=== PATIENT | female | born 1945 | race Caucasian/White ===

== ENCOUNTER 2016-11-09 18:00 | Inpatient (IN) | payer MEDICARE, OTHER ==
--- NOTE | ~2016-11-09 | HP ---
History And Physical [id number] [place]. [address] NAME: ANDREW GARCIA : 45 STATUS : ADM IN [facility]#: [id number] AGE: 71 ADM/REG DATE : 11/09/16 MR#: [id number] REPORT SERV DATE: 11/10/16 DICTATED BY: RICHELLE ESPINOZA DATE: 11/10/16 REPORT STATUS : Draft TRANSCRIBED BY: MODJuliana DATE: 11/10/16 DATE OF ADMISSION: 11/09/2016 CHIEF COMPLAINT: Worsening peripheral edema. HISTORY OF PRESENT ILLNESS: 71-year-old woman, known to me from prior care, followed by Dr. Jones, has history of mitral valve replacement and pulmonary hypertension with 06/29 echo estimating peak PA pressure 62 mmHg, minimally impaired LV systolic function with 06/29 echo estimating LVEF 45%, 08/27 echo and cardiac evaluation yielding mitral valve area in the range of 1.0 cm2 and significant aortic regurgitation with 09/27 placement of Laureano bioprosthesis in the mitral position and Mitroflow bioprosthetic aortic valve (Dr. Nava). 06/29 echo estimated peak AV gradient of only 17 mmHg with nominal mitral valve function. The patient's cardiovascular history is further remarkable for untreated sleep apnea, hypertension, diabetes, coronary artery disease with 09/27 CABG consisting of SVG to posterior descending artery and peripheral vascular disease. The patient reports flu-like symptoms over the last week and worsening lower extremity edema. She telephoned her primary doctor who urged her to go to the [facility] where she was evaluated and assessed to have heart failure. BNP was markedly elevated. Increase in lower extremity edema was observed. I was contacted and accepted the patient in transfer to [facility]. PAST MEDICAL HISTORY: 1. CAD-status post CABG. 2. Pulmonary hypertension-marked after mitral valve replacement due to mitral stenosis. 3. Status post MVR with Laureano bioprosthesis. 4. Status post AVR with Mitroflow bioprosthesis. 5. DM2. 6. Hypertension. 7. CHRISTIANE-not treated with CPAP. 8. Hypercholesteremia-treated. 9. Carotid disease-noncritical. 10.Peripheral arterial disease-reported right lower extremity stent by vascular surgeon remotely. CURRENT MEDICATIONS: Clonidine 0.1 mg/hr patch, Lantus 35 units q.p.m., Zetia 10 mg daily, omeprazole 40 mg daily, paroxetine 40 mg daily, Micardis 80 mg daily, Plavix 75 mg daily, nitroglycerin patch 0.4 mg/hr daily, gemfibrozil 600 mg twice a day, rosuvastatin 10 mg daily, KCl 10 mEq daily, Lasix 20 mg twice a day, fish oil 1 g daily, Humalog corrected dosage. ALLERGIES: VALIUM AND MORPHINE WITH VALIUM. SOCIAL HISTORY: The patient is from a second marriage. She has two children. She has smoked half a pack a day for 25 years but has not smoked since 1994. She denies alcohol consumption. History And Physical [address] [address] NAME: ANDREW GARCIA : 45 STATUS : ADM IN [facility]#: [id number] AGE: 71 ADM/REG DATE : 11/09/16 MR#: [id number] REPORT SERV DATE: 11/10/16 DICTATED BY: RICHELLE ESPINOZA DATE: 11/10/16 REPORT STATUS : Draft TRANSCRIBED BY: KYRA DATE: 11/10/16 FAMILY HISTORY: Noncontributory. REVIEW OF SYSTEMS: Unremarkable except as noted above. PHYSICAL EXAMINATION: GENERAL: No acute distress. VITAL SIGNS: 170/60, respirations 16, temperature 97.2, pulse 75 and regular. NECK: 10 cm JVD, right carotid bruit. LUNGS: Clear. CARDIAC: Soft S4, II/ systolic murmur, I/IV diastolic murmur. ABDOMEN: Obese. EXTREMITIES: +2/4 bilateral pretibial pitting edema. LABORATORY DATA: BUN and creatinine 54 and 1.54 yielding EGFR of 39. CK of 405, CK-MB 7.1, troponin-I 0.17. EKG: Sinus rhythm, rate of 76, normal axes and intervals, poor R-wave progression, V1 through V5. ASSESSMENT AND PLAN: 1. Acute on chronic cor pulmonale-IV diuresis and bed rest. Replete potassium and check BMP. Deep vein thrombosis prophylaxis. 2. Carotid disease-stable. Continues on Plavix. 3. Coronary artery disease-stable. Continues on Plavix. 4. Status post mitral valve replacement-noted. 5. Hypercholesteremia-treated. 6. Hypertension-suboptimal. We will increase clonidine dosing. 7. Diabetes mellitus 2-consult hospitalist. 8. Sleep apnea-noncompliant with CPAP. 9. Status post aortic valve replacement-noted. 10.Chronic kidney disease stage 3-noted. 11.Positive troponin-suspect type 2 myocardial infarction. Observe. /MODL Richelle Espinoza M.D. / [id number] CC: Rosa Duran M.D.
--- NOTE | ~2016-11-09 | CN ---
Consultation Report [address] [place]. [address] NAME: ANDREW GARCIA : 45 STATUS : ADM IN PAT#: [id number] AGE: 71 ADM/REG DATE : 11/09/16 MR#: [id number] REPORT SERV DATE: 11/10/16 DICTATED BY: CLAUDIAFARIDEHSERA RODRÍGUEZ DATE: 11/10/16 REPORT STATUS : Draft TRANSCRIBED BY: MODL DATE: 11/10/16 CONSULTATION DATE OF CONSULTATION: 11/09/2016 REASON FOR CONSULTATION: Consulted for diabetes management. REQUESTING PHYSICIAN: Dr. Jonathan Espinoza. IDENTIFYING DATA: 1. PCP, previously saw Dr. Franklin Rendon and now is seeing a physician named Karen. 2. Orthopedist in the past, Dutch Prasad. 3. Manager Programming, Jonathan Espinoza. 4. Scrum Master, Dr. Holden. 5. Vascular surgeon, Dr. Phelps. 6. Global Regulatory Affairs Manager, Robert Rust. 7. Cardiac surgeon, Dr. Nava. HISTORY OF PRESENT ILLNESS: This is a pleasant 71-year-old female with a longstanding history of coronary artery disease, hypertension, carotid disease, acute kidney injury, CABG with AVR and MVR as well as right lower extremity stents, who presents for admission with Dr. Jonathan Espinoza for shortness of breath and congestive heart failure. We have been consulted to help manage the patient's blood sugars while she is inpatient. The patient's history was obtained through careful interview with the patient, [facility], and admissions consultant's notes. PAST MEDICAL HISTORY: 1. The patient wears glasses. 2. Essential hypertension. 3. High cholesterol. 4. Obstructive sleep apnea on CPAP. 5. GERD. 6. Carotid disease. 7. TAYLOR. 8. Diabetes type 2 for approximately 30 years with average blood sugars 100-110. 9. Depression. 10.Anxiety. 11.Peripheral vascular disease. 12.Atrial fibrillation. 13.Pulmonary hypertension. 14.Syncope. HOME MEDICATIONS: 1. Ramah-3 fatty acid 1000 mg p.o. twice a day. Consultation Report [id number] [facility] [place]. [address] NAME: ANDREW GARCIA : 45 STATUS : ADM IN PAT#: [id number] AGE: 71 ADM/REG DATE : 11/09/16 MR#: [id number] REPORT SERV DATE: 11/10/16 DICTATED BY: FARIDEH TAYLOR DATE: 11/10/16 REPORT STATUS : Draft TRANSCRIBED BY: KYRA DATE: 11/10/16 2. Prilosec 40 mg p.o. daily. 3. Paxil 40 mg p.o. daily. 4. Potassium chloride 20 mEq p.o. twice a day. 5. Crestor 10 mg p.o. at bedtime. 6. Micardis 80 mg p.o. daily. 7. Catapres TTS patch 0.1 mg topical every Monday. 8. Plavix 75 mg p.o. daily. 9. Zetia 10 mg p.o. at bedtime. 10.Lasix 20 mg p.o. twice a day. 11.Lopid 600 mg p.o. twice a day. 12.Lantus 40 units subcu daily. 13.Humalog sliding scale. 14.Nitroglycerin 0.4 mg/hour dermal patch, one patch topically twice a day, change every 12 hours. ALLERGIES: VALIUM AND MORPHINE. SOCIAL HISTORY: The patient is a . She has two grown girls, four great grand children, seven grandchildren. Was a previous smoker of one and half packs per day, but quit approximately 30 years ago. She lives in a single-level home. No alcohol or illicit drug use. FAMILY HISTORY: Mother is , positive for coronary artery disease and CHF and at 76 years old of congestive heart failure. She also was positive for stroke. Father is , had myocardial infarction in his 70s. The patient has two half brothers and two half sisters, who are all . PAST SURGICAL HISTORY: 1. Right cataract surgery on 12/19/2013. 2. Left cataract surgery on 01/02/2014. 3. Previous right shoulder fracture. 4. Right heart cath in 2013. 5. CABG with AVR and MVR in August 2013. 6. Previous . 7. Tonsillectomy with adenoidectomy. 8. Cholecystectomy in 2000. 9. Colonoscopy five years ago. 10.Right lower extremity stent. 11.Renal artery stent approximately three and half years ago. REVIEW OF SYSTEMS: The patient is alert and oriented. Complains of no nausea and vomiting. No abdominal pain. No chest pain. No fever. Displays no agitation or confusion. States she does have shortness of breath with exertion. Consultation Report [id number] [place]. [address] NAME: ANDREW GARCIA : 45 STATUS : ADM IN PAT#: [id number] AGE: 71 ADM/REG DATE : 11/09/16 MR#: [id number] REPORT SERV DATE: 11/10/16 DICTATED BY: FARIDEH TAYLOR DATE: 11/10/16 REPORT STATUS : Draft TRANSCRIBED BY: MODJuliana DATE: 11/10/16 PHYSICAL EXAMINATION: VITAL SIGNS: Vital signs from today; blood pressure 176/64, respiratory rate 18, heart rate 70, temperature 98.3, O2 sat 92% on room air. GENERAL: This is a very pleasant 71-year-old obese female, sitting up at the site of her bed in no acute distress. NEUROLOGIC: Her head is atraumatic. She is normocephalic. Alert and oriented x3. Her cranial nerves are intact. Mood is pleasant and appropriate. NECK: Her neck is supple. Trachea is midline. No JVD. No obvious thyromegaly or lymphadenopathy. EENT: Sclerae are nonicteric. Pupils are equal, reactive to light. Her nares are patent. Her mucous membranes are moist. Her tongue is midline without deviation. Her soft palate rises equally with phonation. CHEST: No pain with palpation. LUNGS: Clear to auscultation. She is diminished in the bases with normal respiratory effort and states she does have shortness of breath with exertion. She has no increased work of breathing presently with conversation. CARDIOVASCULAR: S1, S2. No appreciable rubs or gallops. Positive for murmur. She is on telemetry, notes sinus rhythm with rate at 70. ABDOMEN: Obese, soft, nontender with active bowel sounds. No palpable organomegaly. Last bowel movement 11/10/2016. EXTREMITIES: No calf tenderness. She does have edema bilaterally in both legs and lower extremities and she has diminished pulses. SKIN: Warm and dry. No unusual rashes or lesions. Normal color and turgor for age. PSYCHIATRIC: The patient is pleasant and cooperative. Appropriate mood and affect. LABORATORY DATA: Sodium 140, potassium 3.5, chloride 101, BUN 57, creatinine 1.59, GFR of 37, glucose of 119, calcium of 8.5. White blood cell 5.5, hemoglobin 12.0, hematocrit 38.7, platelets 168. CPK 14, CK-MB 7.3. Troponin 0.17. Blood sugars noted were 101 and 123 on 09/11/2016. An EKG was obtained, displays a sinus rhythm with ST and T-wave abnormalities, anterior infarct age undetermined. Past echo in 06/2016 showed LVEF of 45%. ASSESSMENT AND PLAN: 1. This lady is diabetic for approximately 25-30 years, type 2. She states she checks her blood sugars at times, four to five times a day. She does have Levemir normally every morning for which she takes 40 units daily and that it has been held for now. She had a low blood sugar prior to admission, she states in the 50s. I do have her on a diabetic and cardiac diet and the Levemir will need to be reinstituted possibly depending on her blood sugars and how they run maybe at a lower scale. We will have a in service educator consult regarding her diet and she would like discussion of foods that are low in sodium and how to maintain a low-sodium diet at home also relating to her congestive heart failure. We will check hemoglobin A1c. Blood sugars will be before meals and at bedtime and one at 0300 hours x1. She will be on a sliding scale level 1 at present time. 2. Obstructive sleep apnea. Aware. The patient does wear home device. We will continue her CPAP at bedtime. She can bring in her own device. Otherwise, we can use one until Consultation Report [address] [address] NAME: ANDREW GARCIA : 45 STATUS : ADM IN [facility]#: [id number] AGE: 71 ADM/REG DATE : 11/09/16 MR#: [id number] REPORT SERV DATE: 11/10/16 DICTATED BY: FARIDEH TAYLOR DATE: 11/10/16 REPORT STATUS : Draft TRANSCRIBED BY: KYRA DATE: 11/10/16 she does have her own. 3. Congestive heart failure. She has chronic systolic congestive heart failure. Aware. Management as per Cardiology and the patient is getting diuresed with Lasix. 4. Hyperlipidemia. Aware. The patient is on Zetia and Lopid daily. 5. Depression. Aware. The patient remains daily on Paxil. 6. Gastroesophageal reflux disease. Aware. The patient remains on her daily dose of Prilosec. The hospitalist group would like to thank you for this consultation and please let us know if we can be of any further assistance. ALESHIA Farideh Taylor NP / [id number] CC: Jonathan Espinoza M.D.
--- NOTE | ~2016-11-09 | CN ---
Consultation Report [facility] [address] [place]. [address] NAME: ANDREW GARCIA : 45 STATUS : ADM IN PAT#: [id number] AGE: 71 ADM/REG DATE : 11/09/16 MR#: [id number] REPORT SERV DATE: 11/12/16 DICTATED BY: JOY MATTHEW DATE: 11/12/16 REPORT STATUS : Draft TRANSCRIBED BY: MODL DATE: 11/12/16 DATE OF CONSULTATION: REQUESTING PHYSICIAN: Ryland Enriquez M.D., [facility], [facility] REASON: Acute kidney injury on chronic kidney disease. HISTORY OF PRESENT ILLNESS: This is a fairly pleasant 71-year-old female patient, admitted to the Cardiology Service, Dr. Jonathan Espinoza, for complaints of malaise, fatigue, and exacerbation of cor pulmonale. She was aggressively diuresed on admission and has since improved from a breathing standpoint. She continues to complain of some fatigue and states that she has had some level of difficulty with ongoing loose stools and diarrhea. She has had a poor p.o. intake with complaints of nausea, but without overt vomiting. We are asked to evaluate the patient for an elevation in serum creatinine. She is followed closely in our office by Dr. Sami Holden, and it appears by available data here, that her baseline creatinine is around 1.04 to 1.36 in the year of 2015 with unknown recent data in our office due to being a weekend day. Her creatinine on the was at 1.59 and has subsequently risen to 2.52 as of today. Her potassium is also elevated at 5.5. She is awake and alert. She denies current chest pain. She states that she is chronically nauseous, has chronically loose stools with no definitive episodes of vomiting. She denies chronic use of nonsteroidal medications, is managed chronically on an ARB, which continues to be in place at this point and her diuretics which have been held. PAST MEDICAL HISTORY: Positive for chronic kidney disease, baseline creatinine as listed above, followed by Dr. Sami Holden. History also positive for hypertension, high cholesterol, obstructive sleep apnea with noncompliance of CPAP, GERD, carotid disease, diabetes mellitus type 2 for approximately 30 years, depression, anxiety, peripheral vascular disease, atrial fibrillation, pulmonary hypertension, syncope, history of atrial and mitral valve replacement by Dr. Nava, CAD, status post CABG, pulmonary hypertension, marked post mitral valve replacement due to mitral stenosis, status post MVR with Laureano bioprosthesis as above, status post AVR with mitral flow bioprosthesis, peripheral artery disease with reported right lower extremity stent by vascular surgery remotely. CURRENT ACTIVE MEDICATIONS AND ALLERGIES: Lipitor 20 mg p.o. daily, Catapres 0.2 mg p.o. b.i.d., Plavix 75 mg p.o. daily, Zetia 10 mg p.o. at bedtime, Lasix 40 mg p.o. daily, Lopid 600 mg p.o. b.i.d., heparin 5000 units subcu q.8 h., level 1 insulin sliding scale, Nitro- Dur 10 mg p.o. topical daily, omega-3 fatty acids one cap daily, Protonix 40 mg daily, paroxetine 40 mg daily, potassium 40 mEq p.o. daily, telmisartan at 80 mg daily, anti- hypoglycemic medications are also empiric. REVIEW OF SYSTEMS: Completed. Please see HPI for pertinent details. SOCIAL HISTORY: No ETOH. No illicit drugs. No tobacco. Consultation Report [address] [place]. [address] NAME: ANDREW GARCIA : 45 STATUS : ADM IN [facility]#: [id number] AGE: 71 ADM/REG DATE : 11/09/16 MR#: [id number] REPORT SERV DATE: 11/12/16 DICTATED BY: JOY MATTHEW DATE: 11/12/16 REPORT STATUS : Draft TRANSCRIBED BY: KYRA DATE: 11/12/16 FAMILY HISTORY: Noncontributory and not reviewed during this consultation and dictation. PHYSICAL EXAMINATION: VITAL SIGNS: Blood pressure 101/56; respiratory rate is 16; heart rate is 64 beats per minute. She is . GENERAL: She is a chronically ill-appearing, female patient, lying in bed, in no acute distress during examination. HEENT: Normocephalic, atraumatic. Normal ocular movements. No scleral icterus. No conjunctival pallor is appreciated. NECK: Without thyromegaly. No JVD or mass. CHEST: Shows positive S1 and S2 without rubs or gallops. LUNGS: Diminished, but essentially clear with possibly late crackles particularly in her left base, but no overt rhonchi or wheezes. GI: Shows positive bowel sounds. Rounded, obese abdomen. : Deferred. EXTREMITIES: Show positive pulses. No clubbing, cyanosis, or edema. NEUROLOGIC: She appears to be grossly intact. Nonfocal. SKIN: Warm, dry, and intact to the visualized surfaces. No rash, lesions, or ecchymosis. PERTINENT LABORATORIES AND IMAGING: To this evaluation: Portable chest x-ray shows cardiomegaly with prior CABG and aortic valve procedure with stable examination. Most recent electrolyte profile: Sodium 139, potassium 5.5, chloride 104, CO2 of 18, BUN 75, creatinine 2.52. Reflected GFR at 90 mL/minute, glucose of 148, calcium 8.5. Her urinalysis taken on 11/09 shows no evidence of protein. No evidence of red blood cells and minimal white blood cells and rare mucus. Most recent CBC on the same day: White blood cell 5.5, RBC 5.11, hemoglobin 12.0, hematocrit 38.7, and platelets at 168. IMPRESSION AND PLAN: This is a 71-year-old female patient with complaint of malaise and fatigue, felt to be in exacerbated cor pulmonale, admitted to the Cardiology Service with aggressive diuresis with baseline creatinine of 1.04 to 1.36, followed by Dr. Sami Holden with the patient chronically on Lasix and ARB. Creatinine has maxed today at 2.52 with potassium of 5.5 with continued use of ARB, as well as continued use of potassium supplementation with Lasix currently placed on hold as of this morning. She also complains of chronic nausea with poor p.o. intake with fatigue as well and loose stools of late. Noted in review of her vital signs are on at least two occasions, blood pressures ranging below 100 systolic. I suspect that this injury is multifocal and related to volume contraction with aggressive diuresis plus poor p.o. intake plus or minus her chronic loose stools, as well as a possible acute tubular necrosis injury with noted hypotension. We will check urine studies, check urine sodium, urine creatinine, and urine urea. Hold her Lasix as is currently planned, hold telmisartan and also considering her elevated potassium, hold her p.o. potassium. We will treat her potassium this afternoon with Kayexalate dosage x1. Considering her cardiac history, we will currently not provide IV fluids, although she does seem somewhat volume contracted. She is understandably somewhat resistive to receiving infusion of fluids. Check her stool for Clostridium difficile with complaint of chronic loose stools. She continues on a p.o. fluid restriction. Hold diuretic; hold ARB as listed Consultation Report [id number] [place]. [address] NAME: ANDREW GARCIA : 45 STATUS : ADM IN PAT#: [id number] AGE: 71 ADM/REG DATE : 11/09/16 MR#: [id number] REPORT SERV DATE: 11/12/16 DICTATED BY: JOY MATTHEW DATE: 11/12/16 REPORT STATUS : Draft TRANSCRIBED BY: KYRA DATE: 11/12/16 above; urine studies; check renal ultrasound; check postvoid residual; place Villagomez catheter if needed; follow closely and consider infusion of IV fluids if creatinine continues to rise or has not plateaued tomorrow. Further modification of treatment plan may be made based on clinical presentation, patient laboratory results, further consultation with renal attending. We appreciate consultation. We are glad to follow this patient with you. DICTATED BY: Santhosh Franks NP JR/KYRA Joy Matthew M.D. / [id number] CC: Rosa Duran M.D.
--- NOTE | ~2016-11-09 | DS ---
Discharge Summary [facility] [address] [place]. [address] NAME: ANDREW GARCIA : 45 STATUS : DIS IN PAT#: [id number] AGE: 71 ADM/REG DATE : 11/09/16 MR#: [id number] REPORT SERV DATE: 11/26/16 DICTATED BY: JONATHAN ESPINOZA DATE: 11/25/16 REPORT STATUS : Draft TRANSCRIBED BY: KYRA DATE: 11/25/16 Data Collection from hospitalization DISCHARGE DIAGNOSES: 1. Acute on chronic cor pulmonale. 2. Uox-UN-xnvhnvbyw myocardial infarction. 3. Mitral valve regurgitation. 4. Aortic valve regurgitation. 5. Hypertension. 6. Acute kidney injury/chronic kidney disease. 7. Type 2 diabetes mellitus. 8. Pulmonary hypertension. 9. Obstructive sleep apnea. 10.Hypercholesterolemia. 11.Peripheral arterial disease. 12.Former smoker. CONSULTATIONS: Farideh Jim and Dr. Joy Koenig. PROCEDURES: Renal ultrasound on 11/14/2016. DISCHARGE MEDICATIONS: Catapres TTS 0.1 mg topically on Mondays, Plavix 75 mg daily, Zetia 10 mg at bedtime, Lasix 40 mg daily, Lopid 600 mg twice a day, Lantus injection insulin 30 units subcutaneously daily, Humalog as per sliding scale as instructed, Nitro-Dur one patch topically twice a day, fish oil 1000 mg twice a day, Prilosec 40 mg daily, Paxil 40 mg daily, Klor-Con 20 mEq twice a day, Crestor 10 mg at bedtime. CONDITION ON DISCHARGE: Stable. DISPOSITION: The patient was discharged home to be followed by Home Health Care on an 1800- calorie, sodium restriction, cardiac/diabetic diet with activities as instructed. She would follow up with Babiat Moore on 11/22/2016. She would follow up with Dr. Marya Mi on 12/09/2016. She would follow up with Dr. Elizabeth Jones on 11/29/2016. HOSPITAL COURSE: This is a 71-year-old female, who has a history of mitral valve replacement and pulmonary hypertension. Echocardiogram in 06/2016 showed estimated peak PA pressure of 62 mmHg, minimally impaired left ventricular systolic function with estimated left ventricular ejection fraction of 45%. 08/2013 echo and cardiac evaluation had yielded mitral valve area in the range of 1.0 cm2 and significant aortic regurgitation with 09/2013 placement of Laureano bioprosthesis in the mitral position and Mitroflow bioprosthetic aortic valve. In 06/2016, echocardiogram revealed estimated peak AV gradient of only 17 mmHg with nominal mitral valve function. The patient's cardiovascular history is further remarkable for untreated sleep apnea, hypertension, diabetes, coronary artery disease with 09/2013 coronary artery bypass grafting consisting of saphenous vein graft to the posterior descending artery and peripheral vascular disease. The patient reported flu-like symptoms over the past week and worsening lower extremity edema. She called her primary care physician, who urged her to go to [facility], where she was evaluated and assessed to have heart failure. BNP was markedly elevated. There was an increase in her Discharge Summary [address] [place]. [address] NAME: ANDREW GARCIA : 45 STATUS : DIS IN PAT#: [id number] AGE: 71 ADM/REG DATE : 11/09/16 MR#: [id number] REPORT SERV DATE: 11/26/16 DICTATED BY: JONATHAN ESPINOZA DATE: 11/25/16 REPORT STATUS : Draft TRANSCRIBED BY: KYRA DATE: 11/25/16 lower extremity edema. The patient was transferred to [facility] for further evaluation and treatment. Upon admission, the patient was felt to have acute on chronic cor pulmonale. IV diuresis was going to be performed, and she was placed on bed rest. Potassium supplementation was going to be given, we would check BMP. DVT prophylaxis was started. Plavix was continued. Creatinine level was 1.54. Clonidine dose was increased. She was seen by Farideh Jim regarding diabetes management. She had been asked to help manage the patient's blood sugars while she was an inpatient. She has been a diabetic for approximately 25-30 years, type 2. She checks her blood sugars sometimes four to five times per day. She does have Levemir normally every morning, for which she takes 40 units daily, that had been held for now. Prior to admission, she said her blood sugar was low in the 50s. She was placed on a diabetic/cardiac diet. Levemir would be reinstituted possibly at a lower amount daily depending on her blood sugars and how they run that evening. She would undergo diabetes education. Hemoglobin A1c was going to be checked. Sliding scale insulin level 1 was started. She does have obstructive sleep apnea and does wear a home device. CPAP would be continued at bedtime. She was going to bring in her own device. She has chronic systolic congestive heart failure. She is on Zetia and Lopid daily for her hyperlipidemia. She was being diuresed with Lasix. She remained on her daily Paxil for depression as well as her daily Prilosec for gastroesophageal reflux disease. On 11/12/2016, she was seen by Dr. Joy Koenig regarding acute kidney injury on chronic kidney disease. Her creatinine on 11/09 was 1.59, it subsequently diya to 2.52. Potassium was elevated at 5.5. She denied any current chest pain. She said she had chronic nausea and chronic loose stools with no definitive episodes of vomiting. She denies the chronic use of nonsteroidal medications. Urine studies were going to be checked. We would also check urine sodium, urine creatinine, and urine urea. Lasix would be held. Telmisartan was also held. We were going to hold her oral potassium. A dose of Kayexalate was going to be given. Stool was going to be checked for Clostridium difficile with her complaints of chronic loose stools. She continues on oral fluid restrictions. Diuretic was held as well as ARB. Urine studies were going to be checked as well as a renal ultrasound. We would check her postvoid residual. A Villagomez catheter would be placed as needed. She was in a sinus rhythm. She underwent diabetes education. Sliding scale insulin continued. She had some dyspnea on exertion and occasional palpitations. She had no chest pain. She had 1+ pitting bilateral pedal edema. Furosemide was held. On 11/13/2016, she complained of being thirsty. She had no nausea or vomiting. She was eager to go home. Sliding scale insulin continued. Her dyspnea was improving. She had no palpitations or chest pain. Echocardiogram was requested. She said she was feeling somewhat better. C difficile study was negative. The following day, she was weak. She had no chest pain or shortness of breath. Creatinine level was 2.93. She remained in a sinus rhythm. Plavix was continued. Proton pump inhibitor continued as well. Creatinine level was decreasing. On 11/15/2016, she was feeling better, but was weak. Her lungs were clear to auscultation. She had no nausea, vomiting, or abdominal pain. She was felt to have had a type 2 myocardial infarction/voe-UM-xdvommale myocardial infarction. Her echocardiogram showed increased gradient. Her diuretic was held. She complained of fatigue, but denied chest pain or shortness of breath. She still had 1 to 2+ edema. She was evaluated by Physical Therapy. The following day, she wanted to go home. She had no shortness of Discharge Summary [address] [address] NAME: ANDREW GARCIA : 45 STATUS : DIS IN PAT#: [id number] AGE: 71 ADM/REG DATE : 11/09/16 MR#: [id number] REPORT SERV DATE: 11/26/16 DICTATED BY: JONATHAN ESPINOZA DATE: 11/25/16 REPORT STATUS : Draft TRANSCRIBED BY: KYRA DATE: 11/25/16 breath. Lasix was going to be resumed. Discharge planning was performed. Creatinine level was now 1.85. On 11/17/2016, her dyspnea was back to baseline. She wanted to go home with home health care. Discharge instructions were given. Due to her improved and stable condition, she was discharged home with the above-stated instructions. Information collected by: Aiyana Orellana I submit the above information as my discharge summary. SALVADOR/KYRA Jonathan Espinoza M.D. / [id number] CC: Rosa Duran M.D. Lindsay C Crawford, M.D.
[~2016-11-09 18:00] MED LIST: *UNABLE1; ALEVE220 MG PO; APIDRA SC; ASAB PO; CALTRA600D PO; CALTRAT600 PO; CATPATCH1 TOP; COREG25 PO; COSOPT OP; COZ25 PO; CRESTOR10 PO; DUREZOL0.05 % OP; EYE DROP OP; EYE INJECTION OPH; FISH OIL1200 MG PO; FISH OIL300 MG PO; FISH-EPA1000 MG PO; GENTEA2 OPH; GLUCOPHAGE1000 MG PO; JANUVIA50 PO; KLOR-CON 1010 MEQ PO; L20 PO; LANTUS PO; LANTUS SC; MAGOX4 PO; MICARDIS80 PO; NITROII20C T; NITROII20C TOP; NORCO1 TA1 PO; PAXIL40 MG PO; PCET PO; PLAVIX PO; PRAVACHOL40 MG PO; PRILOSEC40 MG PO; PROLENSA1.6 ML OPH; SPIRO25 PO; STARLIX120 PO; SYMLINPEN 601000 MCG SC; VITAMIN D400 UNI1 PO; VITC500 PO; ZETIA PO; [UNRECOGNIZED DRUG - REMARK]
[2016-11-09] MEDS ORDERED: KLOR-CON M2020 MEQ PO (18:47)
[2016-11-09] MEDS ORDERED: L20 PO (18:47)
[2016-11-09] MEDS ORDERED: HUMALOG SC (18:49)
[2016-11-09] MEDS ORDERED: LOPID6 PO (18:51)
[2016-11-09] MEDS ORDERED: PAXIL40 MG PO (18:52)
[2016-11-09 21:53] LABS: BASOPHILS 1.3 %; BASOPHILS ABSOLUTE 0.07 10/3/uL (0.0-0.16); EOSINOPHILS 1.1 %; EOSINOPHILS ABSOLUTE 0.06 10/3/uL (0.0-0.53); HEMATOCRIT 38.7 % (36.0-48.0); IMMATURE GRANULOCYTES 0.2 %; IMMATURE GRANULOCYTES ABSOLUTE 0.01 10/3/uL (0.0-0.11); LYMPHOCYTES 26.6 %; LYMPHOCYTES ABSOLUTE 1.47 10/3/uL (0.67-4.30); MANUAL DIFF NO %; MEAN CORPUSCULAR HEMOGLOB 23.5 pg (26.0-34.0); MEAN CORPUSCULAR VOLUME 75.7 fL (80-100); MEAN PLATELET VOLUME 10.6 fL (9.2-13.0); MONOCYTES 5.4 %; NEUTROPHILS 65.4 %; NEUTROPHILS ABSOLUTE 3.62 10/3/uL (2.02-8.40); NUCLEATED RED BLOOD CELLS 0.6 /100WBC (0-0); PLATELET COUNT 168 10/3/uL (150-400); RBC DISTRIBUTION WIDTH 18.8 % (12.0-16.0); RED CELL COUNT 5.11 10/6/uL (4.0-5.6); WHITE BLOOD CELLS 5.5 10/3/uL (4.5-10.5)
[2016-11-09 21:58] LABS: CALCIUM, SERUM 8.5 MG/DL (8.5-10.4); CHLORIDE, SERUM 101 MMOL/L (96-112); CK-MB 7.3 NG/ML; CO2 (CARBON DIOXIDE) 26 MMOL/L (24-34); CREATININE 1.59 MG/DL (0.55-1.02); GFR AFRICAN AMERICAN 37 ML/MIN (>=60); GFR NON AFRICAN AMERICAN 32 ML/MIN (>=60); GLUCOSE, SERUM 119 MG/DL (60-99); POTASSIUM, SERUM 3.5 MMOL/L (3.5-5.3); SODIUM, SERUM 140 MMOL/L (135-148)
[2016-11-09 21:59] LABS: ANISOCYTOSIS 1+ (5-10/OIF) (0-5/OIF); BUN (BLOOD UREA NITROGEN) 57 MG/DL (6-23); CKMB INDEX (NOT ORD) 1.8; CPK 410 U/L (0-200); MICROCYTES 1+ (5-10/OIF) (0-5/OIF); OVALOCYTES 1+ (3-10/OIF) (0-2/OIF)
[2016-11-09 22:00] LABS: PLATELET ESTIMATE ADQ (ADEQUATE); POIKILOCYTOSIS 1+ (5-10/OIF) (0-5/OIF)
[2016-11-09 22:01] LABS: TROPONIN I 0.17 NG/ML (<0.05)
[2016-11-09 23:25] LABS: ASCORBIC ACID (UR NOT ORDER) NEG (NEG); BILIRUBIN, URINE NEGATIVE (NEG); KETONE, URINE NEGATIVE (NEG); LEUKOCYTE ESTERASE(NOT OR NEG (NEG); WBC (NOT ORDERED) (RFLEX) 1 (0-5)
[2016-11-10 05:21] LABS: BUN (BLOOD UREA NITROGEN) 54 MG/DL (6-23); CALCIUM, SERUM 8.8 MG/DL (8.5-10.4); CHLORIDE, SERUM 102 MMOL/L (96-112); CK-MB 7.1 NG/ML; CO2 (CARBON DIOXIDE) 23 MMOL/L (24-34); CPK 405 U/L (0-200); CREATININE 1.53 MG/DL (0.55-1.02); GFR AFRICAN AMERICAN 39 ML/MIN (>=60); GFR NON AFRICAN AMERICAN 34 ML/MIN (>=60); POTASSIUM, SERUM 3.7 MMOL/L (3.5-5.3); SODIUM, SERUM 135 MMOL/L (135-148)
[2016-11-10 05:24] LABS: CKMB INDEX (NOT ORD) 1.8; GLUCOSE, SERUM 82 MG/DL (60-99); TROPONIN I 0.17 NG/ML (<0.05)
[2016-11-11 05:07] LABS: BUN (BLOOD UREA NITROGEN) 60 MG/DL (6-23); CALCIUM, SERUM 8.3 MG/DL (8.5-10.4); CHLORIDE, SERUM 106 MMOL/L (96-112); CO2 (CARBON DIOXIDE) 23 MMOL/L (24-34); CREATININE 1.64 MG/DL (0.55-1.02); GFR AFRICAN AMERICAN 36 ML/MIN (>=60); GFR NON AFRICAN AMERICAN 31 ML/MIN (>=60); GLUCOSE, SERUM 103 MG/DL (60-99); POTASSIUM, SERUM 4.2 MMOL/L (3.5-5.3); SODIUM, SERUM 142 MMOL/L (135-148)
[2016-11-12 05:21] LABS: CALCIUM, SERUM 8.5 MG/DL (8.5-10.4); CHLORIDE, SERUM 104 MMOL/L (96-112); CO2 (CARBON DIOXIDE) 20 MMOL/L (24-34); SODIUM, SERUM 139 MMOL/L (135-148)
[2016-11-12 05:35] LABS: BUN (BLOOD UREA NITROGEN) 69 MG/DL (6-23); CREATININE 2.26 MG/DL (0.55-1.02); GFR AFRICAN AMERICAN 24 ML/MIN (>=60); GFR NON AFRICAN AMERICAN 21 ML/MIN (>=60); GLUCOSE, SERUM 131 MG/DL (60-99); POTASSIUM, SERUM 5.9 MMOL/L (3.5-5.3)
[2016-11-12 13:53] LABS: CALCIUM, SERUM 8.5 MG/DL (8.5-10.4); CHLORIDE, SERUM 104 MMOL/L (96-112); CO2 (CARBON DIOXIDE) 18 MMOL/L (24-34); CREATININE 2.52 MG/DL (0.55-1.02); GFR AFRICAN AMERICAN 21 ML/MIN (>=60); GFR NON AFRICAN AMERICAN 19 ML/MIN (>=60); GLUCOSE, SERUM 148 MG/DL (60-99); POTASSIUM, SERUM 5.5 MMOL/L (3.5-5.3); SODIUM, SERUM 139 MMOL/L (135-148)
[2016-11-12 13:54] LABS: BUN (BLOOD UREA NITROGEN) 75 MG/DL (6-23)
[2016-11-13 06:45] LABS: BASOPHILS 0.4 %; BASOPHILS ABSOLUTE 0.03 10/3/uL (0.0-0.16); EOSINOPHILS 0.1 %; EOSINOPHILS ABSOLUTE 0.01 10/3/uL (0.0-0.53); HEMATOCRIT 36.1 % (36.0-48.0); HEMOGLOBIN 11.3 g/dL (12.0-16.0); IMMATURE GRANULOCYTES 0.1 %; IMMATURE GRANULOCYTES ABSOLUTE 0.01 10/3/uL (0.0-0.11); LYMPHOCYTES 27.5 %; LYMPHOCYTES ABSOLUTE 2.09 10/3/uL (0.67-4.30); MEAN CORPUS HGB CONC 31.3 g/dL (32.0-36.0); MEAN CORPUSCULAR HEMOGLOB 23.4 pg (26.0-34.0); MEAN CORPUSCULAR VOLUME 74.9 fL (80-100); MONOCYTES ABSOLUTE 0.76 10/3/uL (0.21-1.20); NEUTROPHILS 61.9 %; NEUTROPHILS ABSOLUTE 4.71 10/3/uL (2.02-8.40); PLATELET COUNT 139 10/3/uL (150-400); RED CELL COUNT 4.82 10/6/uL (4.0-5.6); WHITE BLOOD CELLS 7.6 10/3/uL (4.5-10.5)
[2016-11-13 06:46] LABS: MANUAL DIFF NO %
[2016-11-13 07:02] LABS: CALCIUM, SERUM 8.8 MG/DL (8.5-10.4); CHLORIDE, SERUM 100 MMOL/L (96-112); CO2 (CARBON DIOXIDE) 20 MMOL/L (24-34); GLUCOSE, SERUM 157 MG/DL (60-99); POTASSIUM, SERUM 5.3 MMOL/L (3.5-5.3); SODIUM, SERUM 136 MMOL/L (135-148)
[2016-11-13 07:03] LABS: ALBUMIN 2.5 G/DL (3.5-5.0); BUN (BLOOD UREA NITROGEN) 80 MG/DL (6-23); CREATININE 3.06 MG/DL (0.55-1.02); GFR AFRICAN AMERICAN 17 ML/MIN (>=60); GFR NON AFRICAN AMERICAN 15 ML/MIN (>=60); PHOSPHORUS, SERUM 6.2 MG/DL (2.5-4.5); TROPONIN I 0.35 NG/ML (<0.05)
[2016-11-13 07:26] LABS: SODIUM, URINE 21 MEQ/L; UREA NITROGEN (RANDOM UR) 397 MG/DL
[2016-11-13 07:34] LABS: PLATELET ESTIMATE SLT DEC (ADEQUATE)
[2016-11-13 07:35] LABS: ANISOCYTOSIS 1+ (5-10/OIF) (0-5/OIF); BURR CELLS 1+ (3-10/OIF) (0-2/OIF); ELLIPTOCYTES 1+ (3-10/OIF) (0-2/OIF); HELMET CELLS OCC (0-2/OIF); POIKILOCYTOSIS 1+ (5-10/OIF) (0-5/OIF)
[2016-11-13 07:37] LABS: POLYCHROMASIA 1+ (2-5/OIF) (0-1/OIF)
[2016-11-14 05:26] LABS: BASOPHILS 0.6 %; BASOPHILS ABSOLUTE 0.04 10/3/uL (0.0-0.16); EOSINOPHILS ABSOLUTE 0.07 10/3/uL (0.0-0.53); HEMATOCRIT 35.8 % (36.0-48.0); HEMOGLOBIN 10.8 g/dL (12.0-16.0); IMMATURE GRANULOCYTES 0.3 %; IMMATURE GRANULOCYTES ABSOLUTE 0.02 10/3/uL (0.0-0.11); LYMPHOCYTES 23.3 %; LYMPHOCYTES ABSOLUTE 1.58 10/3/uL (0.67-4.30); MEAN CORPUS HGB CONC 30.2 g/dL (32.0-36.0); MEAN CORPUSCULAR VOLUME 76.3 fL (80-100); MONOCYTES 7.5 %; MONOCYTES ABSOLUTE 0.51 10/3/uL (0.21-1.20); NEUTROPHILS 67.3 %; NEUTROPHILS ABSOLUTE 4.56 10/3/uL (2.02-8.40); NUCLEATED RED BLOOD CELLS 1.3 /100WBC (0-0); PLATELET COUNT 142 10/3/uL (150-400); RBC DISTRIBUTION WIDTH 19.3 % (12.0-16.0); RED CELL COUNT 4.69 10/6/uL (4.0-5.6); WHITE BLOOD CELLS 6.8 10/3/uL (4.5-10.5)
[2016-11-14 05:27] LABS: MANUAL DIFF NO %
[2016-11-14 05:43] LABS: A/G RATIO 0.6 (0.7-1.9); ALBUMIN 2.4 G/DL (3.5-5.0); BUN (BLOOD UREA NITROGEN) 83 MG/DL (6-23); CALCIUM, SERUM 8.6 MG/DL (8.5-10.4); CHLORIDE, SERUM 99 MMOL/L (96-112); CO2 (CARBON DIOXIDE) 17 MMOL/L (24-34); CREATININE 2.93 MG/DL (0.55-1.02); GFR AFRICAN AMERICAN 18 ML/MIN (>=60); GFR NON AFRICAN AMERICAN 15 ML/MIN (>=60); SGPT(ALT) 235 U/L (5-65); SODIUM, SERUM 132 MMOL/L (135-148); TOTAL PROTEIN 6.4 G/DL (6.0-8.5)
[2016-11-14 05:44] LABS: ALKALINE PHOSPHATASE 92 U/L (45-117); GLUCOSE, SERUM 190 MG/DL (60-99); POTASSIUM, SERUM 5.1 MMOL/L (3.5-5.3); SGOT(AST) 422 U/L (5-40); TOTAL BILIRUBIN 1.3 MG/DL (0-1.2); TROPONIN I 0.26 NG/ML (<0.05)
[2016-11-15 07:03] LABS: BUN (BLOOD UREA NITROGEN) 83 MG/DL (6-23); CALCIUM, SERUM 8.5 MG/DL (8.5-10.4); CHLORIDE, SERUM 102 MMOL/L (96-112); POTASSIUM, SERUM 4.5 MMOL/L (3.5-5.3); SODIUM, SERUM 135 MMOL/L (135-148)
[2016-11-15 07:04] LABS: CO2 (CARBON DIOXIDE) 21 MMOL/L (24-34); CREATININE 2.35 MG/DL (0.55-1.02); GFR AFRICAN AMERICAN 23 ML/MIN (>=60); GFR NON AFRICAN AMERICAN 20 ML/MIN (>=60); GLUCOSE, SERUM 135 MG/DL (60-99)
[2016-11-16 07:10] LABS: CALCIUM, SERUM 8.5 MG/DL (8.5-10.4); CHLORIDE, SERUM 100 MMOL/L (96-112); CO2 (CARBON DIOXIDE) 21 MMOL/L (24-34); POTASSIUM, SERUM 4.6 MMOL/L (3.5-5.3); SODIUM, SERUM 134 MMOL/L (135-148)
[2016-11-16 07:11] LABS: BUN (BLOOD UREA NITROGEN) 77 MG/DL (6-23); CREATININE 1.85 MG/DL (0.55-1.02); GFR AFRICAN AMERICAN 31 ML/MIN (>=60); GFR NON AFRICAN AMERICAN 27 ML/MIN (>=60); GLUCOSE, SERUM 231 MG/DL (60-99)
[2016-11-17 04:55] LABS: CALCIUM, SERUM 8.5 MG/DL (8.5-10.4); CHLORIDE, SERUM 100 MMOL/L (96-112); CO2 (CARBON DIOXIDE) 23 MMOL/L (24-34); CREATININE 1.65 MG/DL (0.55-1.02); GFR AFRICAN AMERICAN 36 ML/MIN (>=60); GFR NON AFRICAN AMERICAN 31 ML/MIN (>=60); POTASSIUM, SERUM 4.4 MMOL/L (3.5-5.3); SODIUM, SERUM 135 MMOL/L (135-148)
[2016-11-17 04:58] LABS: BUN (BLOOD UREA NITROGEN) 67 MG/DL (6-23); GLUCOSE, SERUM 148 MG/DL (60-99)
[2016-11-17] MEDS ORDERED: NOVOLOG (10:21)
[2016-11-17] MEDS ORDERED: HUMALOG (10:26)
== END 2016-11-17 15:21 | disposition home health service (06) | DRG 280 ==
LOC: 5NO 18:00
PROVIDERS: Internal Medicine Cardiovascular Disease; Nurse Practitioner Family; Student in an Organized Health Care Education/Training Program
DX: I13.0 Hypertensive heart and chronic kidney disease with heart failure and stage 1 through stage 4 chronic kidney disease, or unspecified chronic kidney disease (principal); I21.4 Non-ST elevation (NSTEMI) myocardial infarction; I50.23 Acute on chronic systolic (congestive) heart failure; N17.9 Acute kidney failure, unspecified; I27.81 Cor pulmonale (chronic); E11.22 Type 2 diabetes mellitus with diabetic chronic kidney disease; Z99.81 Dependence on supplemental oxygen; G47.33 Obstructive sleep apnea (adult) (pediatric); E78.5 Hyperlipidemia, unspecified; F32.9 Major depressive disorder, single episode, unspecified; K21.9 Gastro-esophageal reflux disease without esophagitis; Z79.02 Long term (current) use of antithrombotics/antiplatelets; Z79.4 Long term (current) use of insulin; Z87.891 Personal history of nicotine dependence; N18.9 Chronic kidney disease, unspecified; F41.9 Anxiety disorder, unspecified; Z95.2 Presence of prosthetic heart valve; N18.3 Chronic kidney disease, stage 3 (moderate); E78.00 Pure hypercholesterolemia, unspecified; I27.2 Other secondary pulmonary hypertension
CPT/HCPCS: 71010; 71020; 76775; 80048; 80053; 80069; 81001; 82550; 82553; 82570; 82962; 83036; 83735; 84300; 84484; 84540; 85025; 87493; 87493-59; 93005; 93306; 97116-GP; 97161-GP; A9270-GY; G8978-CK-GP; G8979-CI-GP

== ENCOUNTER 2016-11-26 01:20 | Inpatient (IN) | payer MEDICARE, OTHER ==
--- NOTE | ~2016-11-26 | HP ---
History And Physical [facility] [address] [place]. [address] NAME: ANDREW GARCIA : 45 STATUS : ADM IN [facility]#: [id number] AGE: 71 ADM/REG DATE : 11/26/16 MR#: [id number] REPORT SERV DATE: 11/26/16 DICTATED BY: LIZANDRO CALDWELL DATE: 11/26/16 REPORT STATUS : Draft TRANSCRIBED BY: MODL DATE: 11/26/16 DATE OF ADMISSION: 11/26/2016 HISTORY OF PRESENT ILLNESS: A 71-year-old white female, recently in the hospital admitted on 11/10/2016 and discharged on 11/17/2016. She was under Dr. Espinoza's service and admitted for worsening peripheral edema along with an elevated BNP. She was treated for acute on chronic cor pulmonale, acute on chronic kidney disease, NSTEMI as well as being treated for UTI for which she completed antibiotics. Her discharge creatinine level was 1.65. Nephrology also was on the case. She went home and felt fine for a while and back home on all her regular scheduled medicines. She states that she did not have any medication changes or additions that she is aware of. She started having some increasing worsening leg swelling and had gained a few pounds in recent days. She also had issue of diarrhea over the past couple of days, having multiple loose stools over these past couple of days. She also had a couple of brief episodes of syncope which prompted the evaluation in the emergency room. She presented over at [facility] where they ordered a chest x-ray that showed pretty much clear lungs, and a large cardiac silhouette and a right-sided pulmonary nodule. CT of the abdomen and pelvis showed some soft tissue stranding/edema which can be seen with anasarca per their report. Also some free fluid in the abdomen also was noted, a low-density left renal lesion consistent with cyst, bilateral perinephric stranding. Her EKG did not show any evidence of ST elevation, but she did have a mildly elevated troponin level of 1.03 and her BNP was elevated at 15,502. She also had an elevated lactate level of 13.6, BUN 60, creatinine 2.2. Her sodium level was 134 and potassium 5.9. The urinalysis was unremarkable for any evidence of urinary tract infection in the emergency room. Urine tox screen did not show any evidence of illicit substances. White blood cell count was normal. They did start the patient on a heparin drip and transferred the patient to our facility for further care. The patient denied any issues of fever or chills at home. No significant chest pain, back pain, shortness of breath. She did have some nausea and a little bit of abdominal pain, but this has resolved. No vomiting. REVIEW OF SYSTEMS: As above. PAST MEDICAL HISTORY: Coronary artery disease, CABG, pulmonary hypertension, mitral valve replacement with Laureano bioprosthesis, aortic valve replacement with Mitroflow bioprosthesis, type 2 diabetes, hypertension, obstructive sleep apnea, dyslipidemia, noncritical carotid disease, peripheral vascular disease with history of right lower extremity stent, and chronic kidney disease. HOME MEDICATIONS: Reviewed. SOCIAL HISTORY: No alcohol, illicit substances or tobacco. FAMILY HISTORY: Noncontributory. PHYSICAL EXAMINATION: History And Physical [address] [address] NAME: ANDREW GARCIA : 45 STATUS : ADM IN [facility]#: [id number] AGE: 71 ADM/REG DATE : 11/26/16 MR#: [id number] REPORT SERV DATE: 11/26/16 DICTATED BY: LIZANDRO CALDWELL DATE: 11/26/16 REPORT STATUS : Draft TRANSCRIBED BY: KYRA DATE: 11/26/16 VITAL SIGNS: Per nursing flow sheet. GENERAL: She is awake and alert. Speaks in full sentences. Maintains good eye contact. NEURO: GCS 15. Moves all extremities. HEENT: Normocephalic and atraumatic. Pupils are equal. NECK: Trachea midline. HEART: Regular rate and rhythm. No murmurs. LUNGS: Clear to auscultation bilaterally. No wheezes, rales, or rubs. GI: Soft, nontender, and nondistended. No guarding, rebound, or rigidity. EXTREMITIES: She does have positive doughy edema of the legs up into the thigh region. : Villagomez catheter in place with yellow urine. ASSESSMENT AND PLAN: 1. Cor pulmonale. 2. Diastolic dysfunction and severe pulmonary hypertension. 3. Acute kidney injury and chronic kidney disease. 4. Hyperkalemia. 5. Lactic acidosis. 6. Hyperglycemia. 7. Anasarca. 8. Elevated troponin. 9. History of aortic valve replacement and mitral valve replacement. The patient is admitted to the ICU on heparin drip which is what she came over on to the emergency room at [facility]. We will continue this for now. We will get Cardiology consult as well as Nephrology consult. Reconciled some of her home medicines, but we will hold some of her blood pressure medicines since she is low normal currently. We will try gentle diuresis on her. Labs will be ordered and drawn. Villagomez catheters in place. We will follow her I's and O's carefully. We will hold off on ordering any repeat echo since she just had one done on 11/14/2016 and this was reviewed. Concerning the diarrhea we will send sample off for C. diff, ova and parasites, as well as stool culture. She will be on a sliding scale of insulin for her hyperglycemia. CEP/MODL Lizandro Caldwell DO / [id number] CC: Lizandro Caldwell DO
--- NOTE | ~2016-11-26 | IDS ---
Interim Discharge Summary [facility] [address] [place]. [address] NAME: ANDREW GARCIA : 45 STATUS : ADM IN [facility]#: [id number] AGE: 71 ADM/REG DATE : 11/26/16 MR#: [id number] REPORT SERV DATE: 11/29/16 DICTATED BY: BRINDA ELI DATE: 11/29/16 REPORT STATUS : Draft TRANSCRIBED BY: MODL DATE: 11/29/16 ADMISSION DATE: 11/26/2016 DISCHARGE DATE: 11/29/2016 DISCHARGE DIAGNOSES: 1. Cor pulmonale, pulmonary hypertension, diastolic dysfunction. 2. Non-STEMI, seen by Dr. Espinoza. She is status post CAB, AVR, and MVR in 2013, on Plavix. 3. Acute kidney injury and chronic kidney disease improving. 4. Positive Clostridium difficile colitis. 5. Anemia and thrombocytopenia. 6. Diabetes mellitus type 2. 7. Obstructive sleep apnea. Currently improved. Ready to move to a monitored bed. The electrolytes are stable today as is her H and H of 10.8 and 34.2. Platelet count are 155,000. Dr. Espinoza will follow. She is scheduled for a myocardial perfusion scan at some point in the future. HAZEL/KYRA Brinda Eli M.D. / [id number] CC: Lizandro Caldwell DO
--- NOTE | ~2016-11-26 | CN ---
Consultation Report [facility] [address] [place]. [address] NAME: ANDREW MONTERO : 45 STATUS : ADM IN [facility]#: [id number] AGE: 71 ADM/REG DATE : 11/26/16 MR#: [id number] REPORT SERV DATE: 11/26/16 DICTATED BY: MANJU ARCINIEGA DATE: 11/26/16 REPORT STATUS : Draft TRANSCRIBED BY: MODL DATE: 11/26/16 NEPHROLOGY CONSULT DATE OF CONSULTATION: 11/26/2016 REASON FOR CONSULT: Chronic kidney disease and volume overload. HISTORY OF PRESENT ILLNESS: Mr. Montero is a pleasant 71-year-old white female who is followed by Dr. Sami Holden in the office of [facility]. She appears to have a baseline creatinine between 1.0 and 1.4. She was just admitted here on 11/12/2016 with acute kidney injury related to probable over-diuresis. She has a previous cardiac history as outlined below. Her creatinine peaked at 3.1, it was down to 1.6 by the time of discharge on 11/17/2016. Her ARB has been on hold since that admission. She noted over the last several days diarrhea, weakness, and dyspnea with edema and was brought to the [facility] and [facility] Here no chest x- ray was performed, but a CT scan at the outside facility showed total body wall edema and anasarca. Her BNP was 2511 and creatinine 1.7. She is C. diff positive and was started on oral vancomycin earlier today. Echocardiogram on 11/14/2016 showed severe diastolic dysfunction. EF 50% to 55% with an aortic valve area of 0.9 cm2. RVSP 73 mmHg. Of note, right ventricle was dilated with decreased ejection fraction. Ultrasound on the same date showed no hydronephrosis. PAST MEDICAL HISTORY: 1. CKD. Baseline creatinine 1 to 1.4. 2. Sleep apnea. Not wearing CPAP. 3. Hypertension. 4. IDDM. A1c 8%. 5. CABG with AVR and MVR in 2013. 6. PAD with right leg stent. 7. Hyperlipidemia. 8. Paroxysmal atrial fibrillation. 9. Severe pulmonary hypertension and diastolic dysfunction. MEDICATIONS: On admission, clonidine patch, Plavix, Zetia, Lasix 40 mg daily, Lopid, Lantus 30 units, Humalog sliding scale and 5 with meals, fish oil, Prilosec, Paxil, potassium, and Crestor. FAMILY HISTORY: No ESRD. SOCIAL HISTORY: She is a . Nonsmoker, retired, and lives in [facility]. REVIEW OF SYSTEMS: Please see HPI for pertinent details. Otherwise, noncontributory. Consultation Report [address] [place]. [address] NAME: ANDREW MONTERO : 45 STATUS : ADM IN [facility]#: [id number] AGE: 71 ADM/REG DATE : 11/26/16 MR#: [id number] REPORT SERV DATE: 11/26/16 DICTATED BY: MANJU ARCINIEGA DATE: 11/26/16 REPORT STATUS : Draft TRANSCRIBED BY: KYRA DATE: 11/26/16 PHYSICAL EXAMINATION: VITAL SIGNS: Temperature 97.8, pulse 75, respirations 15, blood pressure 118/54, 98% saturation on 2 L per nasal cannula. GENERAL: He is an elderly, pale appearing white female, chronically ill. Awake, alert, oriented, and cooperative with the exam, in no distress. HEENT: Sclerae without icterus. Conjunctivae not injected, but pale. NECK: JVD 8 to 10 cm. LUNGS: Diffuse bilateral rhonchi with decreased breath sounds at the bases. No dyspnea, on oxygen per nasal cannula. She does have an irregular rhythm which appears consistent with atrial fibrillation, on the monitor. 2/6 murmurs are noted. ABDOMEN: Obese, soft, nontender, nondistended. HJR is positive. EXTREMITIES: 2+ bilateral lower extremity pitting edema. SKIN: Without rash or livedo reticularis. NEURO: Grossly nonfocal. Mood and affect are appropriate. Urine output is noted in the Villagomez catheter. LABORATORY DATA: Sodium 134, potassium 4.7, bicarb 21, BUN 52, creatinine 1.7, GFR 30 mL/minute. Calcium 8, magnesium 2.1, phosphorus 6.1, albumin 2.1. Troponin 2.68. BNP 2511. A1c 8%. Procalcitonin 0.25. White count 9.2, hemoglobin 9.8, platelets 121,000. INR 2.7. No eosinophils on the differential. ASSESSMENT AND PLAN: Ms Montero has chronic kidney disease, baseline creatinine 1 to 1.4. Now presents with volume overload, cor pulmonale, coronary artery disease with bypass surgery and aortic valve regurgitation, mitral valve regurgitation, EF 50%. Severe pulmonary hypertension, non-ST elevation myocardial infarction, and Clostridium difficile colitis. More than likely, her worsened renal function is related to cardiorenal syndrome with severe pulmonary hypertension. She may have some intravascular volume depletion related to Clostridium difficile colitis. She also likely has some third spacing with low albumin. We will dose albumin and Bumex and follow closely with you. Hopefully, dialysis can be avoided. We will check iron stores because of her severe anemia. I appreciate consult. SEBASTIÁN/MODL Manju Arciniega M.D. / [id number] CC: DO Sami Dhillon Jr, M.D.
--- NOTE | ~2016-11-26 | DS ---
Discharge Summary [facility] [address] [place]. [address] NAME: ANDREW GARCIA : 45 STATUS : DIS IN PAT#: [id number] AGE: 71 ADM/REG DATE : 11/26/16 MR#: [id number] REPORT SERV DATE: 12/05/16 DICTATED BY: BRINDA MARQUES DATE: 12/03/16 REPORT STATUS : Draft TRANSCRIBED BY: MODL DATE: 12/03/16 ADMISSION DATE: 11/26/2016 DISCHARGE DATE: 12/03/2016 CONSULTANTS: Dr. Lizandro Caldwell Pulmonary Critical Care, Dr. Jonathan Espinoza Cardiology, Dr. James Byrd Nephrology. DISCHARGE DIAGNOSES: 1. Multiple syncopal episodes related to volume depletion. 2. Acute C difficile colitis. 3. Acute kidney injury, superimposed on stage 3 chronic kidney disease. 4. Demand ischemia, but no myocardial infarction. 5. Cor pulmonale since at least 2010 based on cardiology's notes. 6. History of coronary bypass. 7. 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 8. History of left kidney complex cyst on MRI, 07/29/2016. 9. History of small right middle lobe nodule 4 x [address] chest 07/26/2016. 10.Hypertension. 11.Diabetes mellitus type 2 with A1c 8%. 12.Obstructive sleep apnea on CPAP. 13.Obesity with body mass index of 40.6. 14.Peripheral arterial disease involving legs with a previous stent and history of carotid disease. 15.Prolonged INR, most consistent with vitamin K deficiency less likely acquired inhibitor. 16.Thrombocytopenia for the last five to six months. HISTORY: This patient had been in the hospital under the care of Dr. Espinoza and was discharged reportedly on 11/17/2016, and she developed some diarrhea and had syncopal episode, was taken to [facility]. At that time, they found a BUN of 60, creatinine 2.2, an elevated lactate of 13.6, and she was transferred over to the critical care team here at [facility] on a heparin drip. She was seen by Dr. Espinoza of Cardiology. She had troponins that went up to a peak of 4.51. Dr. Espinoza, in his notes ordered a nuclear stress test on the patient, this was done on 11/29/2016 showing an old scar, anterior septal, no evidence for acute ischemia, ejection fraction 39%. Echocardiogram, 11/14/2016, showed left atrial size 4.5 cm, left ventricular ejection fraction 50% to 55%, severe diastolic dysfunction, severe pulmonary hypertension with PA pressure of 73. Dr. Espinoza felt this was demand ischemia. Etiology of her cor pulmonale is not clear. We have requested records from her rice drier, Dr. Robert Rust, and had not received them yet. We are hoping that would help shed some light as to what has been the cause of his pulmonary hypertension, that according to Dr. Espinoza's office note goes back to at least 2010. As far as her diarrhea was concerned, she was found to have C difficile colitis. She was placed on oral vancomycin and has had good improvement of this and has no abdominal pain, Discharge Summary [address] [address] NAME: ANDREW GARCIA : 45 STATUS : DIS IN PAT#: [id number] AGE: 71 ADM/REG DATE : 11/26/16 MR#: [id number] REPORT SERV DATE: 12/05/16 DICTATED BY: BRINDA MARQUES DATE: 12/03/16 REPORT STATUS : Draft TRANSCRIBED BY: KYRA DATE: 12/03/16 and her diarrhea is resolved. The patient's acute kidney injury has improved. Her creatinine is around baseline, which is around 1.5 to 1.7. There was an EKG read here by canvas goods maker as showing atrial fibrillation. However to my eyes, it appears to clearly have P waves and frequent PACs and I do not believe this patient has atrial fibrillation. Therefore, we do not see a need for anticoagulation for this. In fact, I have noticed that her INR here has been elevated between 1.9 and 2.7. She has not been on any warfarin. She has been off heparin for a number of days. This is most likely a vitamin K deficiency far less likely an inhibitor. She has been started on vitamin K supplements and her INR is improving down to 1.9. She also has a thrombocytopenia that has been present to variable degrees since at least July 2016. She also had some during her hospitalization 09/2013. At both times, she has had heparin exposure, so I have requested a heparin-induced thrombocytopenia panel and that has been sent off to the lab. We are not using heparin products on her at this time. She appears to have an anemia, that is iron deficient, her MCV is decreased at 78, and her total iron was 26 with a percent saturation of 7, ferritin of 69, TIBC of 360. She did receive some intravenous iron supplement with Ferrlecit here in the hospital. When she received some Roxicodone, she was very somnolent and difficult to keep awake, so we have discontinued that. She has no complaints of pain. She has been much more alert. Her only pain today really has been at IV sites or where blood was drawn and she has bruising on her right arm. She does have some chronic insomnia, we are trying to use some melatonin for that. She is felt to need inpatient rehab and those arrangements have been made. DISCHARGE MEDICATIONS: Plavix 75 mg daily, Zetia 10 mg daily, Lasix 40 mg daily, Lopid 600 mg twice a day, Paxil 40 mg daily, vitamin K 5 mg daily through 12/05/2016, NovoLog level 2 sliding scale before meals and at bedtime, Tylenol 650 q.6 hours p.r.n. pain or fever, Levemir 10 units at bedtime, fish oil 1000 mg twice a day, glucose tablets p.r.n. hypoglycemia, melatonin 3 mg at bedtime p.r.n. insomnia, Crestor 10 mg at bedtime, vancomycin 125 mg b.i.d. for seven more days, then 125 mg daily for seven days, and 125 mg every two days for a week, then 125 mg every three days for a week. She has no active reflux symptoms of any significance and so I stopped her omeprazole to try to reduce the chance of recurrent C difficile colitis. I spent 32 minutes today with the patient and with discharge planning. MARTHA/MODL Discharge Summary [facility] [address] [place]. [address] NAME: ANDREW GARCIA : 45 STATUS : DIS IN [facility]#: [id number] AGE: 71 ADM/REG DATE : 11/26/16 MR#: [id number] REPORT SERV DATE: 12/05/16 DICTATED BY: BRIDNA MARQUES DATE: 12/03/16 REPORT STATUS : Draft TRANSCRIBED BY: TEJAL DATE: 12/03/16 Brinda Marques M.D. / [id number] CC: Rosa Mobley M.D. Larry Sprouse II, M.D. Donald Franklin Jr, M.D. Daniel Smith, M.D. [facility]
[~2016-11-26 01:20] MED LIST changes: +HUMALOG; +HUMALOG SC; +KLOR-CON M2020 MEQ PO; +LOPID6 PO; +NOVOLOG
[2016-11-26 04:37] LABS: BASOPHILS 0.2 %; BASOPHILS ABSOLUTE 0.02 10/3/uL (0.0-0.16); EOSINOPHILS 0 %; HEMATOCRIT 32.9 % (36.0-48.0); HEMOGLOBIN 9.8 g/dL (12.0-16.0); IMMATURE GRANULOCYTES 0.2 %; IMMATURE GRANULOCYTES ABSOLUTE 0.02 10/3/uL (0.0-0.11); LYMPHOCYTES 17.6 %; LYMPHOCYTES ABSOLUTE 1.62 10/3/uL (0.67-4.30); MEAN CORPUS HGB CONC 29.8 g/dL (32.0-36.0); MEAN CORPUSCULAR HEMOGLOB 22.5 pg (26.0-34.0); MEAN CORPUSCULAR VOLUME 75.5 fL (80-100); MONOCYTES 5.2 %; MONOCYTES ABSOLUTE 0.48 10/3/uL (0.21-1.20); NEUTROPHILS 76.8 %; NEUTROPHILS ABSOLUTE 7.04 10/3/uL (2.02-8.40); PLATELET COUNT 121 10/3/uL (150-400); RBC DISTRIBUTION WIDTH 20.6 % (12.0-16.0); RED CELL COUNT 4.36 10/6/uL (4.0-5.6); WHITE BLOOD CELLS 9.2 10/3/uL (4.5-10.5)
[2016-11-26 04:38] LABS: INTERNATIONAL NORMAL RATI 2.7 UNITS (-)
[2016-11-26 04:39] LABS: MANUAL DIFF NO %
[2016-11-26 04:42] LABS: CHLORIDE, SERUM 97 MMOL/L (96-112); CO2 (CARBON DIOXIDE) 21 MMOL/L (24-34); CPK (IF ELEVATED MB BANDS) 308 U/L (0-200); GFR AFRICAN AMERICAN 35 ML/MIN (>=60); GFR NON AFRICAN AMERICAN 30 ML/MIN (>=60); POTASSIUM, SERUM 4.7 MMOL/L (3.5-5.3); SODIUM, SERUM 134 MMOL/L (135-148)
[2016-11-26 04:44] LABS: BUN (BLOOD UREA NITROGEN) 52 MG/DL (6-23); GLUCOSE, SERUM 347 MG/DL (60-99); PHOSPHORUS, SERUM 6.1 MG/DL (2.5-4.5)
[2016-11-26 04:45] LABS: TROPONIN I 2.68 NG/ML (<0.05)
[2016-11-26 04:49] LABS: PARTIAL THROMBO TIME > 150.0 SEC (22.5-37.2); PROTIME (NOT ORD) 28.6 SEC (12.0-14.5)
[2016-11-26 04:57] LABS: ASCORBIC ACID (UR NOT ORDER) NEG (NEG); BILIRUBIN, URINE NEGATIVE (NEG); KETONE, URINE NEGATIVE (NEG); LEUKOCYTE ESTERASE(NOT OR NEG (NEG); WBC (NOT ORDERED) (RFLEX) 3 (0-5)
[2016-11-26 05:05] LABS: CK-MB 16.2 NG/ML
[2016-11-26 05:06] LABS: CKMB INDEX (NOT ORD) 5.3
[2016-11-26 05:20] LABS: PROCALCITONIN 0.25 ng/mL (<0.5)
[2016-11-26 06:05] LABS: PLATELET ESTIMATE SLT DEC (ADEQUATE)
[2016-11-26 09:43] LABS: CALCIUM IONIZED 3.88 MG/DL (3.80-4.80)
[2016-11-26 10:34] LABS: A/G RATIO 0.6 (0.7-1.9); ALBUMIN 2.1 G/DL (3.5-5.0); ALKALINE PHOSPHATASE 90 U/L (45-117); GLOBULIN 3.6 G/DL (2.5-4.1); SGOT(AST) 55 U/L (5-40); SGPT(ALT) 54 U/L (5-65); TOTAL BILIRUBIN 1.3 MG/DL (0-1.2); TOTAL PROTEIN 5.7 G/DL (6.0-8.5)
[2016-11-26 10:53] LABS: B NATRIURETIC PEPTIDE (BNP) 2511.1 PG/ML (< 100.0)
[2016-11-27 04:50] LABS: PROTIME (NOT ORD) 22.6 SEC (12.0-14.5)
[2016-11-27 04:51] LABS: BASOPHILS 0.7 %; BASOPHILS ABSOLUTE 0.06 10/3/uL (0.0-0.16); EOSINOPHILS 1.2 %; HEMATOCRIT 32.8 % (36.0-48.0); HEMOGLOBIN 10.2 g/dL (12.0-16.0); IMMATURE GRANULOCYTES 0.2 %; IMMATURE GRANULOCYTES ABSOLUTE 0.02 10/3/uL (0.0-0.11); LYMPHOCYTES 27.3 %; LYMPHOCYTES ABSOLUTE 2.23 10/3/uL (0.67-4.30); MEAN CORPUS HGB CONC 31.1 g/dL (32.0-36.0); MEAN CORPUSCULAR HEMOGLOB 22.9 pg (26.0-34.0); MEAN CORPUSCULAR VOLUME 73.5 fL (80-100); MONOCYTES 5.1 %; MONOCYTES ABSOLUTE 0.42 10/3/uL (0.21-1.20); NEUTROPHILS 65.5 %; NEUTROPHILS ABSOLUTE 5.34 10/3/uL (2.02-8.40); PLATELET COUNT 122 10/3/uL (150-400); RBC DISTRIBUTION WIDTH 20.4 % (12.0-16.0); RED CELL COUNT 4.46 10/6/uL (4.0-5.6); WHITE BLOOD CELLS 8.2 10/3/uL (4.5-10.5)
[2016-11-27 04:52] LABS: MANUAL DIFF NO %
[2016-11-27 04:59] LABS: % IRON SAT 7 % (20-50); CALCIUM, SERUM 8.8 MG/DL (8.5-10.4); CHLORIDE, SERUM 100 MMOL/L (96-112); CO2 (CARBON DIOXIDE) 23 MMOL/L (24-34); CREATININE 1.67 MG/DL (0.55-1.02); FERRITIN 69 NG/ML (8-252); GFR AFRICAN AMERICAN 35 ML/MIN (>=60); GFR NON AFRICAN AMERICAN 30 ML/MIN (>=60); IRON BINDING CAPACITY 360 MCG/DL (225-410); IRON, SERUM 26 MCG/DL (35-150); POTASSIUM, SERUM 4.1 MMOL/L (3.5-5.3); SODIUM, SERUM 139 MMOL/L (135-148)
[2016-11-27 05:05] LABS: BUN (BLOOD UREA NITROGEN) 58 MG/DL (6-23); GLUCOSE, SERUM 119 MG/DL (60-99); PHOSPHORUS, SERUM 3.7 MG/DL (2.5-4.5); TROPONIN I 4.51 NG/ML (<0.05)
[2016-11-27 05:33] LABS: PLATELET ESTIMATE SLT DEC (ADEQUATE)
[2016-11-27 05:34] LABS: ANISOCYTOSIS 1+ (5-10/OIF) (0-5/OIF); MACROCYTES 1+ (5-10/OIF) (0-5/OIF); POLYCHROMASIA 1+ (2-5/OIF) (0-1/OIF)
[2016-11-28 04:52] LABS: PARTIAL THROMBO TIME 75.1 SEC (22.5-37.2)
[2016-11-28 05:01] LABS: BUN (BLOOD UREA NITROGEN) 58 MG/DL (6-23); CALCIUM, SERUM 8.8 MG/DL (8.5-10.4); CHLORIDE, SERUM 100 MMOL/L (96-112); CO2 (CARBON DIOXIDE) 25 MMOL/L (24-34); CREATININE 1.79 MG/DL (0.55-1.02); GFR AFRICAN AMERICAN 32 ML/MIN (>=60); GFR NON AFRICAN AMERICAN 28 ML/MIN (>=60); GLUCOSE, SERUM 140 MG/DL (60-99); PHOSPHORUS, SERUM 3.5 MG/DL (2.5-4.5); POTASSIUM, SERUM 4.2 MMOL/L (3.5-5.3); SODIUM, SERUM 139 MMOL/L (135-148)
[2016-11-28 05:03] LABS: ALBUMIN 2.8 G/DL (3.5-5.0)
[2016-11-28 05:06] LABS: BASOPHILS 0.7 %; BASOPHILS ABSOLUTE 0.05 10/3/uL (0.0-0.16); EOSINOPHILS 2.3 %; EOSINOPHILS ABSOLUTE 0.16 10/3/uL (0.0-0.53); HEMATOCRIT 35.5 % (36.0-48.0); HEMOGLOBIN 10.7 g/dL (12.0-16.0); IMMATURE GRANULOCYTES 0.1 %; IMMATURE GRANULOCYTES ABSOLUTE 0.01 10/3/uL (0.0-0.11); LYMPHOCYTES 22.8 %; LYMPHOCYTES ABSOLUTE 1.62 10/3/uL (0.67-4.30); MEAN CORPUS HGB CONC 30.1 g/dL (32.0-36.0); MEAN CORPUSCULAR HEMOGLOB 22.4 pg (26.0-34.0); MEAN CORPUSCULAR VOLUME 74.4 fL (80-100); MONOCYTES 4.8 %; MONOCYTES ABSOLUTE 0.34 10/3/uL (0.21-1.20); NEUTROPHILS 69.3 %; NEUTROPHILS ABSOLUTE 4.93 10/3/uL (2.02-8.40); PLATELET COUNT 113 10/3/uL (150-400); RBC DISTRIBUTION WIDTH 20.7 % (12.0-16.0); RED CELL COUNT 4.77 10/6/uL (4.0-5.6); WHITE BLOOD CELLS 7.1 10/3/uL (4.5-10.5)
[2016-11-28 05:09] LABS: MANUAL DIFF NO %
[2016-11-28 05:23] LABS: PLATELET ESTIMATE SLT DEC (ADEQUATE)
[2016-11-28 05:24] LABS: ANISOCYTOSIS 1+ (5-10/OIF) (0-5/OIF); POLYCHROMASIA 1+ (2-5/OIF) (0-1/OIF)
[2016-11-28 05:27] LABS: MICROCYTES 1+ (5-10/OIF) (0-5/OIF)
[2016-11-28 12:50] LABS: ALLENS TEST Pos; BE (BASE EXCESS) -2.2 MEQ/L (0 +/- 2.5); CARBOXYHEMOGLOBIN 1.4 % (0-3); HCO3 (ACTUAL BICARBONATE) 20.8 MEQ/L (23-27); HEMOBLOGIN CONTENT 11.4 G/DL (12-16); INSTRUMENT SERIAL # 8083; METHEMOGLOBIN 0.3 % (0-3); PCO2 (CO2 TENSION) 30 MMHG (35-45); PO2 (O2 TENSION) 76 MMHG (79-93); SAMPLE Arterial; pH 7.46 (7.37-7.43)
[2016-11-29 04:50] LABS: PARTIAL THROMBO TIME 127.3 SEC (22.5-37.2)
[2016-11-29 04:54] LABS: BASOPHILS 0.6 %; BASOPHILS ABSOLUTE 0.05 10/3/uL (0.0-0.16); BUN (BLOOD UREA NITROGEN) 55 MG/DL (6-23); CHLORIDE, SERUM 102 MMOL/L (96-112); CO2 (CARBON DIOXIDE) 23 MMOL/L (24-34); EOSINOPHILS 1.5 %; EOSINOPHILS ABSOLUTE 0.12 10/3/uL (0.0-0.53); GFR AFRICAN AMERICAN 35 ML/MIN (>=60); GFR NON AFRICAN AMERICAN 30 ML/MIN (>=60); HEMATOCRIT 34.2 % (36.0-48.0); HEMOGLOBIN 10.8 g/dL (12.0-16.0); IMMATURE GRANULOCYTES 0.1 %; IMMATURE GRANULOCYTES ABSOLUTE 0.01 10/3/uL (0.0-0.11); LYMPHOCYTES 19.2 %; LYMPHOCYTES ABSOLUTE 1.57 10/3/uL (0.67-4.30); MEAN CORPUS HGB CONC 31.6 g/dL (32.0-36.0); MEAN CORPUSCULAR HEMOGLOB 23.3 pg (26.0-34.0); MEAN CORPUSCULAR VOLUME 73.7 fL (80-100); MONOCYTES 4.3 %; MONOCYTES ABSOLUTE 0.35 10/3/uL (0.21-1.20); NEUTROPHILS 74.3 %; NEUTROPHILS ABSOLUTE 6.07 10/3/uL (2.02-8.40); NUCLEATED RED BLOOD CELLS 1.5 /100WBC (0-0); PHOSPHORUS, SERUM 3.7 MG/DL (2.5-4.5); RBC DISTRIBUTION WIDTH 20.8 % (12.0-16.0); RED CELL COUNT 4.64 10/6/uL (4.0-5.6); SODIUM, SERUM 139 MMOL/L (135-148); WHITE BLOOD CELLS 8.2 10/3/uL (4.5-10.5)
[2016-11-29 04:56] LABS: MANUAL DIFF NO %; PLATELET COUNT 155 10/3/uL (150-400)
[2016-11-29 04:59] LABS: GLUCOSE, SERUM 182 MG/DL (60-99)
[2016-11-29 05:40] LABS: ANISOCYTOSIS 1+ (5-10/OIF) (0-5/OIF); PLATELET ESTIMATE ADQ (ADEQUATE)
[2016-11-29 05:41] LABS: ELLIPTOCYTES 1+ (3-10/OIF) (0-2/OIF); HYPOCHROMIA 1+ (3-10/OIF) (0-2/OIF); SCHISTOCYTES FEW (3-10/OIF)
[2016-11-30 07:16] LABS: BASOPHILS 0.5 %; BASOPHILS ABSOLUTE 0.04 10/3/uL (0.0-0.16); EOSINOPHILS 1.6 %; EOSINOPHILS ABSOLUTE 0.13 10/3/uL (0.0-0.53); HEMATOCRIT 35.4 % (36.0-48.0); HEMOGLOBIN 10.8 g/dL (12.0-16.0); IMMATURE GRANULOCYTES 0.1 %; IMMATURE GRANULOCYTES ABSOLUTE 0.01 10/3/uL (0.0-0.11); LYMPHOCYTES 18.7 %; LYMPHOCYTES ABSOLUTE 1.49 10/3/uL (0.67-4.30); MEAN CORPUS HGB CONC 30.5 g/dL (32.0-36.0); MEAN CORPUSCULAR HEMOGLOB 22.9 pg (26.0-34.0); MONOCYTES 4.5 %; MONOCYTES ABSOLUTE 0.36 10/3/uL (0.21-1.20); NEUTROPHILS 74.6 %; NEUTROPHILS ABSOLUTE 5.93 10/3/uL (2.02-8.40); NUCLEATED RED BLOOD CELLS 4.2 /100WBC (0-0); PLATELET COUNT 137 10/3/uL (150-400); RBC DISTRIBUTION WIDTH 21.1 % (12.0-16.0); RED CELL COUNT 4.72 10/6/uL (4.0-5.6)
[2016-11-30 07:17] LABS: CALCIUM, SERUM 8.7 MG/DL (8.5-10.4); CHLORIDE, SERUM 101 MMOL/L (96-112); CO2 (CARBON DIOXIDE) 22 MMOL/L (24-34); CREATININE 1.59 MG/DL (0.55-1.02); GFR AFRICAN AMERICAN 37 ML/MIN (>=60); GFR NON AFRICAN AMERICAN 32 ML/MIN (>=60); GLUCOSE, SERUM 147 MG/DL (60-99); SODIUM, SERUM 137 MMOL/L (135-148)
[2016-11-30 07:18] LABS: BUN (BLOOD UREA NITROGEN) 61 MG/DL (6-23)
[2016-11-30 07:28] LABS: MANUAL DIFF NO %
[2016-11-30 07:55] LABS: ANISOCYTOSIS 1+ (5-10/OIF) (0-5/OIF); GIANT PLATELET FEW; MICROCYTES 1+ (5-10/OIF) (0-5/OIF); PLATELET ESTIMATE ADQ (ADEQUATE)
[2016-11-30 07:56] LABS: POLYCHROMASIA 2+ (5-10/OIF) (0-1/OIF)
[2016-11-30 07:58] LABS: SCHISTOCYTES OCC (0-2/OIF)
[2016-12-01 04:29] LABS: CALCIUM, SERUM 8.5 MG/DL (8.5-10.4); CHLORIDE, SERUM 104 MMOL/L (96-112); CO2 (CARBON DIOXIDE) 23 MMOL/L (24-34); CREATININE 1.51 MG/DL (0.55-1.02); GFR AFRICAN AMERICAN 40 ML/MIN (>=60); GFR NON AFRICAN AMERICAN 34 ML/MIN (>=60); GLUCOSE, SERUM 141 MG/DL (60-99); POTASSIUM, SERUM 3.6 MMOL/L (3.5-5.3); SODIUM, SERUM 139 MMOL/L (135-148)
[2016-12-01 04:31] LABS: BUN (BLOOD UREA NITROGEN) 57 MG/DL (6-23)
[2016-12-01 04:36] LABS: BASOPHILS 0.7 %; BASOPHILS ABSOLUTE 0.05 10/3/uL (0.0-0.16); EOSINOPHILS 3.4 %; EOSINOPHILS ABSOLUTE 0.25 10/3/uL (0.0-0.53); HEMATOCRIT 34.5 % (36.0-48.0); HEMOGLOBIN 10.7 g/dL (12.0-16.0); IMMATURE GRANULOCYTES 0.3 %; IMMATURE GRANULOCYTES ABSOLUTE 0.02 10/3/uL (0.0-0.11); LYMPHOCYTES 18.8 %; MANUAL DIFF NO %; MEAN CORPUSCULAR HEMOGLOB 23.6 pg (26.0-34.0); MONOCYTES 5.9 %; MONOCYTES ABSOLUTE 0.44 10/3/uL (0.21-1.20); NEUTROPHILS 70.9 %; NEUTROPHILS ABSOLUTE 5.27 10/3/uL (2.02-8.40); NUCLEATED RED BLOOD CELLS 3.3 /100WBC (0-0); PLATELET COUNT 133 10/3/uL (150-400); RBC DISTRIBUTION WIDTH 21.2 % (12.0-16.0); RED CELL COUNT 4.54 10/6/uL (4.0-5.6); WHITE BLOOD CELLS 7.4 10/3/uL (4.5-10.5)
[2016-12-01 04:38] LABS: GIANT PLATELET OCC; PLATELET ESTIMATE ADQ (ADEQUATE); RBC MORPHOLOGY ABN (NORMAL)
[2016-12-02 05:29] LABS: INTERNATIONAL NORMAL RATI 1.9 UNITS (-); PROTIME (NOT ORD) 21.9 SEC (12.0-14.5)
[2016-12-02 05:42] LABS: CK-MB 2.9 NG/ML; CPK 104 U/L (0-200)
[2016-12-02 05:44] LABS: TROPONIN I 0.53 NG/ML (<0.05)
[2016-12-02 05:47] LABS: CALCIUM, SERUM 8.4 MG/DL (8.5-10.4); CHLORIDE, SERUM 101 MMOL/L (96-112); CO2 (CARBON DIOXIDE) 26 MMOL/L (24-34); CREATININE 1.62 MG/DL (0.55-1.02); GFR AFRICAN AMERICAN 37 ML/MIN (>=60); GFR NON AFRICAN AMERICAN 32 ML/MIN (>=60); GLUCOSE, SERUM 154 MG/DL (60-99); POTASSIUM, SERUM 3.7 MMOL/L (3.5-5.3); SODIUM, SERUM 138 MMOL/L (135-148)
[2016-12-02 05:50] LABS: BUN (BLOOD UREA NITROGEN) 51 MG/DL (6-23)
[2016-12-02 06:27] LABS: HEMOGLOBIN 11.1 g/dL (12.0-16.0); MANUAL DIFF YES %; MEAN CORPUS HGB CONC 30.8 g/dL (32.0-36.0); MEAN CORPUSCULAR HEMOGLOB 23.8 pg (26.0-34.0); MEAN CORPUSCULAR VOLUME 77.1 fL (80-100); NUCLEATED RED BLOOD CELLS 2.6 /100WBC (0-0); PLATELET COUNT 105 10/3/uL (150-400); RBC DISTRIBUTION WIDTH 22.6 % (12.0-16.0); RED CELL COUNT 4.67 10/6/uL (4.0-5.6); WHITE BLOOD CELLS 8.1 10/3/uL (4.5-10.5)
[2016-12-02 07:16] LABS: EOSINOPHILS 4 %; EOSINOPHILS ABSOLUTE (CALC) 0.32 10/3/uL (0.0-0.53); LYMPHOCYTES 8 %; LYMPHOCYTES ABSOLUTE (CALC) 0.65 10/3/uL (0.67-4.30); MONOCYTES 4 %; MONOCYTES ABSOLUTE (CALC) 0.32 10/3/uL (0.21-1.20); PLATELET ESTIMATE SLT DEC (ADEQUATE); SEGMENTED NEUTROPHIL (0) 84 %; TOTAL NUCLEATED CELLS 100
[2016-12-02 07:17] LABS: HYPOCHROMIA 1+ (3-10/OIF) (0-2/OIF)
[2016-12-02 12:12] LABS: CK-MB 2.9 NG/ML; CPK 79 U/L (0-200); TROPONIN I 0.47 NG/ML (<0.05)
[2016-12-02 18:32] LABS: CPK 88 U/L (0-200)
[2016-12-02 18:33] LABS: CK-MB 2.8 NG/ML
[2016-12-03 07:17] LABS: BUN (BLOOD UREA NITROGEN) 52 MG/DL (6-23); CALCIUM, SERUM 8.7 MG/DL (8.5-10.4); CHLORIDE, SERUM 98 MMOL/L (96-112); CO2 (CARBON DIOXIDE) 28 MMOL/L (24-34); CREATININE 1.56 MG/DL (0.55-1.02); GFR AFRICAN AMERICAN 38 ML/MIN (>=60); GFR NON AFRICAN AMERICAN 33 ML/MIN (>=60); GLUCOSE, SERUM 152 MG/DL (60-99); HIT PTT 38.3 SEC (22.5-37.2); INTERNATIONAL NORMAL RATI 1.9 UNITS (-); PARTIAL THROMBO TIME 38.3 SEC (22.5-37.2); POTASSIUM, SERUM 3.3 MMOL/L (3.5-5.3); PROTIME (NOT ORD) 21.4 SEC (12.0-14.5); SODIUM, SERUM 135 MMOL/L (135-148)
[2016-12-03 07:45] LABS: BASOPHILS 0.4 %; BASOPHILS ABSOLUTE 0.03 10/3/uL (0.0-0.16); EOSINOPHILS 3.1 %; EOSINOPHILS ABSOLUTE 0.25 10/3/uL (0.0-0.53); HEMATOCRIT 36.8 % (36.0-48.0); HEMOGLOBIN 11.2 g/dL (12.0-16.0); IMMATURE GRANULOCYTES 0.2 %; IMMATURE GRANULOCYTES ABSOLUTE 0.02 10/3/uL (0.0-0.11); LYMPHOCYTES 17.1 %; LYMPHOCYTES ABSOLUTE 1.39 10/3/uL (0.67-4.30); MEAN CORPUS HGB CONC 30.4 g/dL (32.0-36.0); MEAN CORPUSCULAR HEMOGLOB 23.7 pg (26.0-34.0); MONOCYTES 4.3 %; MONOCYTES ABSOLUTE 0.35 10/3/uL (0.21-1.20); NEUTROPHILS 74.9 %; NEUTROPHILS ABSOLUTE 6.09 10/3/uL (2.02-8.40); NUCLEATED RED BLOOD CELLS 1.8 /100WBC (0-0); PLATELET COUNT 99 10/3/uL (150-400); RBC DISTRIBUTION WIDTH 23.9 % (12.0-16.0); RED CELL COUNT 4.72 10/6/uL (4.0-5.6); WHITE BLOOD CELLS 8.1 10/3/uL (4.5-10.5)
[2016-12-03 07:46] LABS: MANUAL DIFF NO %
[2016-12-03 07:50] LABS: HYPOCHROMIA 1+ (3-10/OIF) (0-2/OIF); MACROCYTES 1+ (5-10/OIF) (0-5/OIF); MICROCYTES 1+ (5-10/OIF) (0-5/OIF); PLATELET ESTIMATE DEC (ADEQUATE); POLYCHROMASIA 1+ (2-5/OIF) (0-1/OIF)
[2016-12-03 07:51] LABS: POIKILOCYTOSIS 1+ (5-10/OIF) (0-5/OIF); SCHISTOCYTES OCC (0-2/OIF)
[2016-12-05 14:30] LABS: HEPARIN-INDUCED PLATELET AB NEGATIVE (NEGATIVE)
== END 2016-12-03 13:42 | DRG 291 ==
LOC: MIC 01:20 → 2SO 11-29 16:03
PROVIDERS: Hospitalist; Internal Medicine Nephrology; Internal Medicine Pulmonary Disease
DX: I13.0 Hypertensive heart and chronic kidney disease with heart failure and stage 1 through stage 4 chronic kidney disease, or unspecified chronic kidney disease (principal); I50.33 Acute on chronic diastolic (congestive) heart failure; N17.9 Acute kidney failure, unspecified; A04.7 Enterocolitis due to Clostridium difficile; E87.2 Acidosis; Z68.41 Body mass index [BMI] 40.0-44.9, adult; I24.8 Other forms of acute ischemic heart disease; D69.6 Thrombocytopenia, unspecified; E11.22 Type 2 diabetes mellitus with diabetic chronic kidney disease; N18.3 Chronic kidney disease, stage 3 (moderate); I27.2 Other secondary pulmonary hypertension; I48.0 Paroxysmal atrial fibrillation; E86.9 Volume depletion, unspecified; E87.5 Hyperkalemia; G47.33 Obstructive sleep apnea (adult) (pediatric); E56.1 Deficiency of vitamin K; I27.81 Cor pulmonale (chronic); F32.9 Major depressive disorder, single episode, unspecified; F41.9 Anxiety disorder, unspecified; R91.1 Solitary pulmonary nodule; I34.0 Nonrheumatic mitral (valve) insufficiency; I35.1 Nonrheumatic aortic (valve) insufficiency; E78.5 Hyperlipidemia, unspecified; G47.00 Insomnia, unspecified; E66.01 Morbid (severe) obesity due to excess calories; N28.1 Cyst of kidney, acquired; Z79.899 Other long term (current) drug therapy; Z95.1 Presence of aortocoronary bypass graft; Z95.2 Presence of prosthetic heart valve; Z87.440 Personal history of urinary (tract) infections; I25.2 Old myocardial infarction; Z79.02 Long term (current) use of antithrombotics/antiplatelets; Z79.4 Long term (current) use of insulin
CPT/HCPCS: 78452; 80048; 80053; 80069; 81001; 82272; 82330; 82533; 82550; 82553; 82728; 82805; 82962; 83540; 83550; 83605; 83735; 83880; 84100; 84145; 84484; 85025; 85610; 85730; 86022; 87045; 87046; 87046-59; 87328; 87329; 87493; 87493-59; 87641; 87899; 87899-59; 93005; 93017; 97116-GP; 97162-GP; A9270-GY; A9502; G8978-CM-GP; G8979-CL-GP; J0153; J1940; J2405; J2916; P9047

== ENCOUNTER 2016-12-04 22:20 | Inpatient (IN) | payer MEDICARE, OTHER ==
--- NOTE | ~2016-12-04 | DS ---
Discharge Summary [place] [address] [facility] [place]. [address] NAME: ANDREW GARCIA : 45 STATUS : DIS IN PAT#: [id number] AGE: 71 ADM/REG DATE : 12/05/16 MR#: [id number] REPORT SERV DATE: 12/09/16 DICTATED BY: VALERIE MICHAELS DATE: 12/08/16 REPORT STATUS : Draft TRANSCRIBED BY: MODL DATE: 12/08/16 ADMISSION DATE: 12/05/2016 DISCHARGE DATE: 12/08/2016 DISCHARGE DIAGNOSIS: 1. Coagulase-negative Staph bacteremia from the IV site with the septic phlebitis. 2. Acute on chronic cor pulmonale. 3. Anasarca. 4. Chronic kidney disease. 5. Congestive heart failure. 6. Peripheral vascular disease. 7. Sleep apnea, noncompliant with the therapy. 8. Status post bioprosthetic mitral valve and aortic valve. CONSULTANTS: 1. Dr. Jonathan Espinoza. 2. Dr. Dangelo. 3. Dr. Salinas, Palliative Care. HISTORY OF PRESENT ILLNESS: This is a 71-year-old female patient, who was discharged on 12/03/2016, had to come back to the hospital on 12/05/2016 with worsening mental status and weakness. Please see the dictated H and P. HOSPITAL COURSE: The patient was admitted to hospital with cor pulmonale, acute on chronic, with other multiple medical comorbidities. The patient was identified to have a gram- positive cocci bacteremia 2/2, on the first day, the patient was appropriately treated with antibiotics, and also Nephrology and Cardiology were consulted. She does have significant anasarca which is about her baseline. However, nephrologists are using multiple other medical treatments to improve her anasarca which was unsuccessful. After four days of the treatment with the bacteremia and other comorbidities, the patient is clinically getting significant worsen. Had a long discussion with the patient and multiple physicians together, and decided to be on palliative care and hospice care based on the patient's preference. Therefore, [facility] was consulted, and the patient is discharged from my service, and will be readmitted under [facility], and they are going to manage the hospice care as an inpatient care. TIME SPENT: More than 30 minutes. EKL/MODL Valerie Michaels M.D. / [id number] Discharge Summary [place] [address] [address] NAME: ANDREW GARCIA : 45 STATUS : DIS IN PAT#: [id number] AGE: 71 ADM/REG DATE : 12/05/16 MR#: [id number] REPORT SERV DATE: 12/09/16 DICTATED BY: VALERIE MICHAELS DATE: 12/08/16 REPORT STATUS : Draft TRANSCRIBED BY: KYRA DATE: 12/08/16 CC: Rosa Ramirez M.D.
--- NOTE | ~2016-12-04 | HP ---
History And Physical [place] [id number] [place]. [address] NAME: ANDREW GARCIA : 45 STATUS : ADM IN [facility]#: [id number] AGE: 71 ADM/REG DATE : 12/05/16 MR#: [id number] REPORT SERV DATE: 12/05/16 DICTATED BY: RICHELLE ESPINOZA DATE: 12/05/16 REPORT STATUS : Draft TRANSCRIBED BY: MODJuliana DATE: 12/05/16 DATE OF ADMISSION: 12/05/2016 REQUESTING PHYSICIAN: The hospitalist. REASON FOR CONSULTATION: Evaluate and treat cardiac valvular disease, positive cardiac enzyme and known cor pulmonale. HISTORY OF PRESENT ILLNESS: This is a 71-year-old woman, followed by Dr. Elizabeth Jones and known to me from prior care, has a history of pulmonary hypertension with 2010 reported PAP of 95 mmHg and 06/2016 [facility] measuring PAP of 62 mmHg, mildly impaired LV systolic function with 06/2016 echo estimating LVEF 45%, cardiac valvular disease with 09/2013 placement of Laureano bioprosthesis in mitral position and mitral flow bioprosthesis in the aortic position (Dr. Nava), and 05/2014 supravalvular aortogram demonstrating mild paravalvular aortic regurgitation, 06/2016 echo estimating peak AV gradient of 17 mmHg. The patient's cardiovascular history is further remarkable for sleep apnea (noncompliant with therapy), type 2 diabetes, hypertension, hypercholesteremia, carotid disease, coronary artery disease and 09/2013 CABG consisting of SVG to RCA, peripheral vascular disease with remote stent. The patient has had two recent hospitalizations at [facility], the first for fluid overload and diuresis, and then readmitted after discharge with acute kidney injury in the setting of volume contraction. She was discharged to [facility] for rehab recently and it is unclear whether she received diuretic therapy there. By relative report, she has gained at least 15 pounds and has presented to the emergency room yesterday with fluid overload. She denies chest pain and dyspnea. PAST MEDICAL HISTORY: 1. CAD - 2013 CABG consisting a vein to posterior descending artery. 2. Impaired LV systolic function - echo 06/2016, LVEF 45%. 3. Cardiac valvular disease - status post Mitroflow aortic valve bioprosthesis and Laureano mitral valve bioprosthesis, 2013. 4. Carotid disease - 10/2016 duplex, less than 50% RCA stenosis and approximately 50% LICA stenosis. 5. Sleep apnea - noncompliant with therapy. 6. Hypertension. 7. DM-2. 8. Hypercholesteremia - treated. 9. Chronic kidney disease - class 3, 10/2016. 10.Peripheral vascular disease - reported right lower extremity stent remotely. MEDICATIONS: By report, acetaminophen p.r.n., Maalox p.r.n., bisacodyl 10 mg suppository p.r.n., Kaopectate p.r.n., Plavix 75 mg daily, Colace 100 mg daily, Zetia 10 mg daily, Lasix 40 mg daily, hydrocortisone suppository p.r.n., insulin corrected dosing, lactulose 30 mL p.r.n., melatonin 3 mg at bedtime p.r.n., MOM, omega-3 fatty acid 1 g b.i.d., Zofran 4 mg every 8 hours p.r.n., Paxil 40 mg daily, Robitussin liquid p.r.n., polyethylene glycol History And Physical [address] [address] NAME: ANDREW GARCIA : 45 STATUS : ADM IN [facility]#: [id number] AGE: 71 ADM/REG DATE : 12/05/16 MR#: [id number] REPORT SERV DATE: 12/05/16 DICTATED BY: RICHELLE ESPINOZA DATE: 12/05/16 REPORT STATUS : Draft TRANSCRIBED BY: KYRA DATE: 12/05/16 p.r.n., promethazine p.r.n., psyllium packet p.r.n., rosuvastatin 10 mg daily, and vancomycin 125 mg b.i.d. SOCIAL HISTORY: Deferred to hospitalist. FAMILY HISTORY: Deferred. REVIEW OF SYSTEMS: Anasarca. PHYSICAL EXAMINATION: GENERAL: No acute distress, anasarca. VITAL SIGNS: 144/45, respirations 20, pulse 89 and regular, temperature 99.5, weight is 93.6 kilos. LUNGS: Diminished breath sounds at bases. NECK: Transmitted cardiac murmur and/or carotid bruit. CARDIAC: III/ systolic murmur heard best at the base of the heart. No diastolic murmur. ABDOMEN: Obese. EXTREMITIES: +3/4 bilateral pretibial pitting edema. Peripheral pulses not palpable. LABORATORY DATA: BUN and creatinine 47 and 1.49 yielding EGFR 41 by MDRD. White blood cell count 11.7000, hematocrit 36.1%, platelets 76,000. BNP 3238. Troponin I 0.55. EKG not on chart. Rhythm strip, sinus rhythm at a rate of 75. ASSESSMENT: 1. Acute on chronic cor pulmonale with anasarca - unclear whether she has received diuretic at [facility]. Discontinue p.o. Lasix and start IV Bumex with a careful titration. Prior to discharge, we should be certain that we have achieved an euvolemic state that it is not changing. 2. Pulmonary hypertension - due to longstanding mitral valve disease and status post MVR. 3. Status post MVR. 4. Status post AVR - Mitroflow prosthesis with history of early failure. Observed. 5. Diabetes mellitus 2 - deferred. 6. Hyperlipidemia - treated. 7. Peripheral vascular disease - stable. 8. Hypertension - acceptable. 9. Sleep apnea - noncompliant with therapy. 10.Cardiomyopathy - presumably ischemic cardiomyopathy with known coronary artery disease, although a volume overload basis historically cannot be excluded. 11.Carotid artery disease - asymptomatic. On anti-platelet therapy. 12.Positive troponin - we will observe. This is nonspecific finding in this context. 13.Thrombocytopenia - observe. 14.Coronary artery disease - angina-free. Continue on antiplatelet therapy and observe. Thank you for this consultation. History And Physical [address] [address] NAME: ANDREW GARCIA : 45 STATUS : ADM IN [facility]#: [id number] AGE: 71 ADM/REG DATE : 12/05/16 MR#: [id number] REPORT SERV DATE: 12/05/16 DICTATED BY: RICHELLE ESPINOZA DATE: 12/05/16 REPORT STATUS : Draft TRANSCRIBED BY: KYRA DATE: 12/05/16 /KYRA Richelle Espinoza M.D. / [id number] CC: Rosa Ireland M.D.
--- NOTE | ~2016-12-04 | CN ---
Consultation Report [facility] [address] [place]. [address] NAME: ANDREW GARCIA : 45 STATUS : ADM IN PAT#: [id number] AGE: 71 ADM/REG DATE : 12/05/16 MR#: [id number] REPORT SERV DATE: 12/05/16 DICTATED BY: ESTIVEN DANGELO DATE: 12/05/16 REPORT STATUS : Draft TRANSCRIBED BY: MODL DATE: 12/05/16 DATE OF CONSULTATION: REASON FOR CONSULTATION: CKD with volume overload. HISTORY OF PRESENT ILLNESS: This is a very pleasant 71-year-old female patient, followed by Dr. Sami Holden in our office. Baseline creatinine historically appears to be 1.0 to 1.4. The patient was previously seen during the hospital admission on 11/26/2016 for consultation for volume overload and chronic kidney disease. She was followed inpatient on 11/30/2016, and the patient was signed off at 1.5 creatinine on 11/30/2016. She returns from an inpatient rehabilitation facility with a creatinine of 1.39 with a complaint of increasing shortness of breath and volume overload. The patient has a known ejection fraction of 50% to 55% with an aortic valve area of 0.9 sq cm and RVSP at 73 mmHg. She was dismissed on Lasix p.o. at 40 mg daily and felt to be volume stable at the time of dismissal. She is lying in bed this morning. She is noticeably short of breath at baseline, but not overtly tachypneic. No nausea, vomiting, or diarrhea. PAST MEDICAL HISTORY: Positive for severe diastolic dysfunction with an ejection fraction of 50% to 55%, aortic valve area of 0.9 sq cm, RVSP 73 mmHg with noted right ventricular dilation and decreased ejection fraction on 11/14/2016. Ultrasound on the same date showed no evidence of hydronephrosis. History is also positive for chronic kidney disease, followed by Dr. Sami Holden, baseline creatinine of 1 to 1.4; obstructive sleep apnea, with nonuse of CPAP; hypertension; insulin-dependent diabetes mellitus, last known A1c of 8.0; CABG with AVR and MVR in 2013; PAD with right leg stent; hyperlipidemia; paroxysmal atrial fibrillation; severe pulmonary hypertension and diastolic dysfunction; recent diagnosis of C difficile and recent syncopal episodes at last admission. MEDICATIONS ON ADMISSION: Include the following: Colace 100 mg p.o. b.i.d., Zetia 10 mg p.o. daily, Lasix 40 mg p.o. daily, gemfibrozil 600 mg p.o. b.i.d., Anusol 25 mg p.r. b.i.d., NovoLog via sliding scale, Levemir 10 units subcu at bedtime, lactulose 30 mL daily p.r.n., melatonin 3 mg p.o. at bedtime, milk of magnesia 30 mg daily p.r.n., Promega 1 g p.o. b.i.d., Zofran 4 mg p.o. q.4-8 hours p.r.n., Paxil 40 mg p.o. daily, Robitussin 5-10 mL p.o. q.4 hours p.r.n., MiraLAX one packet p.o. daily, promethazine suppositories 12.5 mg p.o. q.6 hours p.r.n., Metamucil 1 packet daily p.r.n., Crestor 10 mg p.o. daily, and Vancocin 125 mg p.o. caplets. REVIEW OF SYSTEMS: Completed. Please see HPI for pertinent details. SOCIAL HISTORY: No ETOH. No illicit drugs. No tobacco. Lives in [place], [place]. . PHYSICAL EXAMINATION: VITAL SIGNS: Blood pressure 130/51, temperature 96.9, respiratory rate of 20, heart rate 80 beats per minute. She is 94% on 2 L. Consultation Report [address] [address] NAME: ANDREW GARCIA : 45 STATUS : ADM IN PAT#: [id number] AGE: 71 ADM/REG DATE : 12/05/16 MR#: [id number] REPORT SERV DATE: 12/05/16 DICTATED BY: ESTIVEN DANGELO DATE: 12/05/16 REPORT STATUS : Draft TRANSCRIBED BY: KYRA DATE: 12/05/16 GENERAL: She is a chronically ill-appearing female patient, who is short of breath, but not overtly tachypneic during evaluation. HEENT: Normocephalic, atraumatic. Normal ocular movements. No scleral icterus. No conjunctival pallor is appreciated. NECK: Supple without thyromegaly. No JVD or mass. CHEST: Shows positive S1, S2 with what appears to be atrial fibrillation on the monitor with a 2/6 murmur. LUNGS: With diffuse rhonchi at the bases. No overt dyspnea, but oxygen saturation stable on 2 L nasal cannula. ABDOMEN: Soft, round, and nontender without guarding or mass. : Deferred. She does have a Villagomez catheter to bedside drainage with sabra-colored urine to bedside. EXTREMITIES: Show positive pulses. No clubbing, cyanosis, or edema. NEUROLOGIC: She appears to be grossly intact. Nonfocal. SKIN: Warm, dry, and intact to the visualized surfaces. No rash, lesions, or ecchymosis. PSYCH: She appears to be of appropriate mood and affect. DIAGNOSTIC DATA: Pertinent laboratories and imaging to this evaluation are as follows: Portable chest x-ray, right basilar discoid atelectasis, stable cardiomegaly with prior median sternotomy with CABG and valve replacement. Left lung is clear and pleural spaces are clear. Bony thorax is grossly intact. WBC 11.7, RBC 4.60, hemoglobin at 11.0, hematocrit 36.1, and platelets at 76. Electrolyte profile shows sodium 133, potassium 3.9, chloride 98, CO2 of 24, BUN 47, creatinine 1.39. Reflected GFR at 38 mL/minute. Glucose of 235. Calcium 9.0, magnesium 2.1, phosphorus 2.7. Negative acetone. TSH 1.64. B- natriuretic peptide most recently 3238.5. IMPRESSION AND PLAN: This is a chronic kidney disease, stage 3, patient of Dr. Sami Holden, with baseline creatinine as listed above in the HPI with stable creatinine with reentry to [facility] with increasing shortness of breath and dyspnea with last known ejection fraction of 55% and an aortic valve surface area of 0.9 cm2 with an RVSP of 73 mmHg noted on 11/14/2016. She was signed off during the previous hospital stay with creatinine within baseline and dismissed on Lasix p.o. at 40 mg daily. She is appropriately being dosed with Bumex and albumin currently; would increase her dose of Bumex to 2 mg IV q.8 h.; continue her albumin and diurese. Would change her p.o. diuretic pattern to Demadex or torsemide and maximize beneficial dose as she stabilizes. Cardiology will evaluate the patient later today, unclear of further cardiac interventions at this time to assist with noted pulmonary hypertension and decreased aortic valve area. Place the patient on strict I's and O's, daily weights. Restrict her fluid intake at 1200 mL daily. Low-sodium diet. Follow closely, serial laboratories, supportive care. Further modification of treatment plan may be made based on clinical presentation of the patient, laboratory results, and further consultation with renal attending. We appreciate the consultation. We are glad to follow. DICTATED BY: Santhosh Franks NP Consultation Report [facility] [address] [facility] [place]. [address] NAME: ANDREW GARCIA : 45 STATUS : ADM IN PAT#: [id number] AGE: 71 ADM/REG DATE : 12/05/16 MR#: [id number] REPORT SERV DATE: 12/05/16 DICTATED BY: ESTIVEN DANGELO DATE: 12/05/16 REPORT STATUS : Draft TRANSCRIBED BY: KYRA DATE: 12/05/16 /KYRA Estiven Dangelo M.D. / [id number] CC: Rosa Ireland M.D.
--- NOTE | ~2016-12-04 | HP ---
History And Physical [facility] [address] [place]. [address] NAME: ANDREW MONTERO : 45 STATUS : ADM IN [facility]#: [id number] AGE: 71 ADM/REG DATE : 12/05/16 MR#: [id number] REPORT SERV DATE: 12/05/16 DICTATED BY: ANDREW WOODSON DATE: 12/05/16 REPORT STATUS : Draft TRANSCRIBED BY: MODL DATE: 12/05/16 DATE OF ADMISSION: 12/05/2016 CHIEF COMPLAINT: Generalized weakness, shortness of breath. HISTORY OF PRESENT ILLNESS: This is a 71-year-old female who has a history of cor pulmonale, severe pulmonary hypertension, obstructive sleep apnea, noncompliant with treatment, diabetes, and other comorbid conditions, who was having rehabilitation done at [facility] when she was found to have increasing shortness of breath and weakness and the patient was transferred back to the emergency room here to be evaluated. History is obtained from the patient's family who are at bedside and reviewing data available on the [facility] system. The patient was able to give some history as well. According to available data, Ms Montero was discharged from [facility] here and had just reached her rehabilitation facility, [facility], and spent a day there. She was found to have increasing shortness of breath and weakness, and the patient was transferred to the ER to be evaluated. In the emergency room today, she had acute cor pulmonale, volume overload, with an elevated BNP, diabetes mellitus with hyperglycemia. Chest x-ray showed increased vascular congestion and the ER providers had called Dr. Espinoza, her appliance repair technician. Dr. Espinoza wanted Hospitalist Service to admit her for further evaluation and treatment, and he will consult. At the time of my evaluation, she denied any chest pain or palpitations. She had no orthopnea. She had no cough, hemoptysis, night sweats, or weight loss. She denied any falls or loss of consciousness. No history of recent fevers, chills, nausea, vomiting, diarrhea, hematemesis, hematochezia, or hematuria. No other history of recent travel or exposures other than those mentioned above. PAST MEDICAL HISTORY: Significant for history of chronic severe pulmonary arterial hypertension with cor pulmonale; obstructive sleep apnea, noncompliant with treatment; diastolic dysfunction with preserved left ventricular function; diabetes mellitus; coronary artery disease with CABG; aortic valve replacement and mitral valve replacement in 2014, currently on Plavix; chronic kidney disease; thrombocytopenia. SOCIAL HISTORY: She does not smoke, drink, or use recreational drugs at this time. FAMILY HISTORY: Noncontributory. MEDICATIONS AT HOME: Reviewed by me in the chart today and reordered by me. REVIEW OF SYSTEMS: As in history of present illness. All other systems were reviewed in detail and are quite unremarkable. PHYSICAL EXAMINATION: GENERAL: This is a pleasant 71-year-old, not in any acute distress. History And Physical [address] [place]. [address] NAME: ANDREW MONTERO : 45 STATUS : ADM IN [facility]#: [id number] AGE: 71 ADM/REG DATE : 12/05/16 MR#: [id number] REPORT SERV DATE: 12/05/16 DICTATED BY: ANDREW WOODSON DATE: 12/05/16 REPORT STATUS : Draft TRANSCRIBED BY: KYRA DATE: 12/05/16 HEENT: Her head was atraumatic, normocephalic. She is alert, awake, oriented to time, place, and person. She was slightly lethargic, but able to give a reliable history. Her pupils were equal, reacting to light and accommodating. External ocular muscles were intact. Membranes are moist and pink. Sclerae are nonicteric. NECK: Supple with no jugular venous distention, lymphadenopathy, or thyromegaly. LUNGS: Auscultation of her lungs revealed markedly diminished air entry bilaterally, but without any wheezes, rubs, or crackles. HEART: Heart sounds were regular with no murmurs, rubs, or gallops. ABDOMEN: Soft, nontender. Bowel sounds are present. EXTREMITIES: Showed bilateral pitting lower extremity edema with no cyanosis or clubbing. NEUROLOGIC: Grossly intact. She was able to move all four extremities. Higher functions appeared intact. VITAL SIGNS: Her temperature today was 99.5, pulse 89, respirations 23 a minute, blood pressure was 144/45. Oxygen saturations were 95% on 2 L via nasal cannula. LABORATORY DATA: Reviewed on the [facility] system showed a pH of 7.49, pCO2 was 27, pO2 of 72, and bicarb was 20.4. This was on room air. CMP showed a sodium of 133, potassium 4.8, chloride 96, and CO2 of 26, BUN was 47 with a creatinine of 1.49, which is about her baseline. Blood glucose was 274. Her albumin was 3.0, globulin 3.6, alkaline phosphatase 90, ALT 54, and AST 55. Troponin today was 0.55. This has been chronically elevated. Her BNP today was 3238.5. CBC showed a white blood cell count of 12,300, hemoglobin was 11.8, hematocrit 38.8, and platelet count was 86,000. Urinalysis was not done today. IMAGING DATA: Films of the chest x-ray were reviewed by me on the PACS today and interpreted by me. Per my interpretation, there is slight increased vascular prominence and fluid in the fissures, consistent with volume overload and congestive heart failure. There is prior sternotomy and cardiomegaly as well. A 12-lead EKG done in the emergency room was reviewed and interpreted by me. There is sinus rhythm with a rate of [address] elevations. An echocardiogram done, 11/14/2016, showed left ventricular ejection fraction of 50% to 55% and RVSP of 73 mmHg. There is diminished RV function as well. IMPRESSION: 1. Generalized weakness. 2. Acute cor pulmonale. 3. Volume overload. 4. Severe pulmonary arterial hypertension. 5. Obstructive sleep apnea, noncompliant. 6. Diastolic dysfunction with preserved left ventricular function. 7. Diabetes mellitus with hyperglycemia. 8. Thrombocytopenia. 9. Coronary artery disease with CABG. 10.Aortic valve replacement and mitral valve replacement in 2013, on Plavix now. 11.Chronic kidney disease. PLAN: We will admit Ms Montero to the Hospitalist Service with cardiac telemetry for close monitoring. We will check her stool for C difficile as she had been recently diagnosed with it and was on vancomycin as treatment. We will hold all other antibiotics at this time. We History And Physical [address] [address] NAME: ANDREW MONTERO : 45 STATUS : ADM IN [facility]#: [id number] AGE: 71 ADM/REG DATE : 12/05/16 MR#: [id number] REPORT SERV DATE: 12/05/16 DICTATED BY: ANDREW WOODSON DATE: 12/05/16 REPORT STATUS : Draft TRANSCRIBED BY: KYRA DATE: 12/05/16 will start her on IV diuretics with intravenous albumin as well, follow strict outputs and weights. We will go ahead and consult Dr. Espinoza to see her in the morning. We will also check her lactate and ketones for metabolic acidosis and check cultures as well. She may have cardiorenal syndrome, and we will go ahead and consult Nephrology Service to see her as well. I have discussed the sleep apnea and the importance of treatment. They are encouraged to bring the CPAP to the hospital, and we will start her therapy here. She does have thrombocytopenia, and we will place her on SCDs for DVT prophylaxis while she is here. I have discussed the above plans with the patient, her questions were answered, and she is agreeable to the above recommendations. Family is also agreeable to the above recommendations. Hospitalist Service will be following her during her stay here. /KYRA Andrew Woodson M.D. / [id number] CC: Rosa Ireland M.D.
[2016-12-04 23:20] LABS: BE (BASE EXCESS) -1.8 MEQ/L (0 +/- 2.5); CARBOXYHEMOGLOBIN 2.1 % (0-3); HCO3 (ACTUAL BICARBONATE) 20.4 MEQ/L (23-27); HEMOBLOGIN CONTENT 12.5 G/DL (12-16); INSTRUMENT SERIAL # 8087; METHEMOGLOBIN 0.3 % (0-3); O2 CONTENT 16.2 VOL% (18-24); PCO2 (CO2 TENSION) 27 MMHG (35-45); PO2 (O2 TENSION) 72 MMHG (79-93); SAMPLE Arterial; pH 7.49 (7.37-7.43)
[2016-12-04 23:47] LABS: BASOPHILS 0.2 %; BASOPHILS ABSOLUTE 0.03 10/3/uL (0.0-0.16); EOSINOPHILS 0.1 %; EOSINOPHILS ABSOLUTE 0.01 10/3/uL (0.0-0.53); HEMATOCRIT 38.8 % (36.0-48.0); HEMOGLOBIN 11.8 g/dL (12.0-16.0); IMMATURE GRANULOCYTES 0.2 %; IMMATURE GRANULOCYTES ABSOLUTE 0.02 10/3/uL (0.0-0.11); LYMPHOCYTES 4.5 %; LYMPHOCYTES ABSOLUTE 0.56 10/3/uL (0.67-4.30); MEAN CORPUS HGB CONC 30.4 g/dL (32.0-36.0); MEAN CORPUSCULAR HEMOGLOB 23.8 pg (26.0-34.0); MEAN CORPUSCULAR VOLUME 78.4 fL (80-100); MONOCYTES 2.6 %; MONOCYTES ABSOLUTE 0.32 10/3/uL (0.21-1.20); NEUTROPHILS 92.4 %; NEUTROPHILS ABSOLUTE 11.38 10/3/uL (2.02-8.40); NUCLEATED RED BLOOD CELLS 0.3 /100WBC (0-0); PLATELET COUNT 86 10/3/uL (150-400); RBC DISTRIBUTION WIDTH 26.3 % (12.0-16.0); RED CELL COUNT 4.95 10/6/uL (4.0-5.6)
[2016-12-04 23:48] LABS: ER CBC TAT 0 Hrs 09 Mins; MANUAL DIFF NO %; WHITE BLOOD CELLS 12.3 10/3/uL (4.5-10.5)
[2016-12-04 23:55] LABS: INTERNATIONAL NORMAL RATI 1.7 UNITS (-); PARTIAL THROMBO TIME 32.2 SEC (22.5-37.2); PROTIME (NOT ORD) 19.9 SEC (12.0-14.5)
[2016-12-05 00:08] LABS: CALCIUM, SERUM 8.9 MG/DL (8.5-10.4); CHLORIDE, SERUM 96 MMOL/L (96-112); CO2 (CARBON DIOXIDE) 26 MMOL/L (24-34); CREATININE 1.49 MG/DL (0.55-1.02); GFR AFRICAN AMERICAN 41 ML/MIN (>=60); GFR NON AFRICAN AMERICAN 35 ML/MIN (>=60); SODIUM, SERUM 133 MMOL/L (135-148)
[2016-12-05 00:09] LABS: BUN (BLOOD UREA NITROGEN) 47 MG/DL (6-23); GLUCOSE, SERUM 274 MG/DL (60-99); POTASSIUM, SERUM 4.8 MMOL/L (3.5-5.3)
[2016-12-05 00:10] LABS: CHEST PAIN PROFILE TAT 0 Hrs 31 Mins; TROPONIN I 0.55 NG/ML (<0.05)
[2016-12-05 00:33] LABS: GIANT PLATELET FEW; MICROCYTES 1+ (5-10/OIF) (0-5/OIF); RBC MORPHOLOGY ABN (NORMAL)
[2016-12-05 00:34] LABS: PLATELET ESTIMATE DEC (ADEQUATE)
[2016-12-05] MEDS ORDERED: PLAVIX PO (03:04)
[2016-12-05] MEDS ORDERED: DSS PO (03:04)
[2016-12-05] MEDS ORDERED: L40 PO (03:05)
[2016-12-05] MEDS ORDERED: ZETIA PO (03:05)
[2016-12-05] MEDS ORDERED: LOPID6 PO (03:05)
[2016-12-05] MEDS ORDERED: PROMEGA PO (03:06)
[2016-12-05] MEDS ORDERED: PAXIL40 MG PO (03:06)
[2016-12-05] MEDS ORDERED: LEVEMFLXPN SC (03:06)
[2016-12-05] MEDS ORDERED: MIRALAX POWDER1 PKT PO (03:07)
[2016-12-05] MEDS ORDERED: [UNRECOGNIZED DRUG - CODE] SC (03:07)
[2016-12-05] MEDS ORDERED: CRESTOR10 PO (03:08)
[2016-12-05] MEDS ORDERED: BIST PO (03:09)
[2016-12-05] MEDS ORDERED: BISR PR (03:09)
[2016-12-05] MEDS ORDERED: MAALOX PO (03:11)
[2016-12-05] MEDS ORDERED: VANCOCIN HCL125 MG PO (03:12)
[2016-12-05] MEDS ORDERED: T PO ×2 (03:13)
[2016-12-05] MEDS ORDERED: KAOPECTATE262 MG/15 PO (03:14)
[2016-12-05] MEDS ORDERED: ROBITUSS23 PO (03:15)
[2016-12-05] MEDS ORDERED: ANUSOL-HC25 MG PR (03:16)
[2016-12-05] MEDS ORDERED: NOVOPEN SC (03:16)
[2016-12-05] MEDS ORDERED: GENERLAC PO (03:17)
[2016-12-05] MEDS ORDERED: ZOFRAN4 PO (03:19)
[2016-12-05] MEDS ORDERED: MELA3 PO (03:19)
[2016-12-05] MEDS ORDERED: MOMUD PO (03:19)
[2016-12-05] MEDS ORDERED: METPAKSF PO (03:20)
[2016-12-05] MEDS ORDERED: PHENADOZ12.5 MG PR (03:20)
[2016-12-05 04:13] LABS: PROCALCITONIN 0.18 ng/mL (<0.5)
[2016-12-05 06:56] LABS: BASOPHILS 0.2 %; BASOPHILS ABSOLUTE 0.02 10/3/uL (0.0-0.16); EOSINOPHILS 0 %; HEMATOCRIT 36.1 % (36.0-48.0); IMMATURE GRANULOCYTES 0.3 %; IMMATURE GRANULOCYTES ABSOLUTE 0.03 10/3/uL (0.0-0.11); LYMPHOCYTES 8.3 %; LYMPHOCYTES ABSOLUTE 0.97 10/3/uL (0.67-4.30); MEAN CORPUS HGB CONC 30.5 g/dL (32.0-36.0); MEAN CORPUSCULAR HEMOGLOB 23.9 pg (26.0-34.0); MEAN CORPUSCULAR VOLUME 78.5 fL (80-100); MONOCYTES 3.9 %; MONOCYTES ABSOLUTE 0.46 10/3/uL (0.21-1.20); NEUTROPHILS 87.3 %; NEUTROPHILS ABSOLUTE 10.21 10/3/uL (2.02-8.40); PLATELET COUNT 76 10/3/uL (150-400); RBC DISTRIBUTION WIDTH 26.6 % (12.0-16.0); WHITE BLOOD CELLS 11.7 10/3/uL (4.5-10.5)
[2016-12-05 06:58] LABS: MANUAL DIFF NO %
[2016-12-05 07:08] LABS: ACETONE NEG
[2016-12-05 07:20] LABS: BUN (BLOOD UREA NITROGEN) 47 MG/DL (6-23); CHLORIDE, SERUM 98 MMOL/L (96-112); CO2 (CARBON DIOXIDE) 24 MMOL/L (24-34); CREATININE 1.39 MG/DL (0.55-1.02); GFR AFRICAN AMERICAN 44 ML/MIN (>=60); GFR NON AFRICAN AMERICAN 38 ML/MIN (>=60); GLUCOSE, SERUM 235 MG/DL (60-99); POTASSIUM, SERUM 3.9 MMOL/L (3.5-5.3); SODIUM, SERUM 133 MMOL/L (135-148)
[2016-12-05 07:21] LABS: PHOSPHORUS, SERUM 2.7 MG/DL (2.5-4.5)
[2016-12-05 07:40] LABS: HYPOCHROMIA 1+ (3-10/OIF) (0-2/OIF); PLATELET ESTIMATE DEC (ADEQUATE); POLYCHROMASIA 1+ (2-5/OIF) (0-1/OIF)
[2016-12-05 17:54] LABS: CREATININE, URINE 97.8 MG/DL
[2016-12-06 05:52] LABS: PARTIAL THROMBO TIME 37.5 SEC (22.5-37.2)
[2016-12-06 05:53] LABS: INTERNATIONAL NORMAL RATI 2.6 UNITS (-)
[2016-12-06 05:57] LABS: BASOPHILS 0.2 %; BASOPHILS ABSOLUTE 0.02 10/3/uL (0.0-0.16); EOSINOPHILS 0 %; HEMATOCRIT 35.6 % (36.0-48.0); HEMOGLOBIN 11.1 g/dL (12.0-16.0); IMMATURE GRANULOCYTES 0.2 %; IMMATURE GRANULOCYTES ABSOLUTE 0.02 10/3/uL (0.0-0.11); LYMPHOCYTES 10.5 %; LYMPHOCYTES ABSOLUTE 1.16 10/3/uL (0.67-4.30); MEAN CORPUS HGB CONC 31.2 g/dL (32.0-36.0); MEAN CORPUSCULAR HEMOGLOB 24.8 pg (26.0-34.0); MEAN CORPUSCULAR VOLUME 79.5 fL (80-100); MONOCYTES ABSOLUTE 0.44 10/3/uL (0.21-1.20); NEUTROPHILS 85.1 %; NEUTROPHILS ABSOLUTE 9.44 10/3/uL (2.02-8.40); NUCLEATED RED BLOOD CELLS 0.3 /100WBC (0-0); RBC DISTRIBUTION WIDTH 27.5 % (12.0-16.0); RED CELL COUNT 4.48 10/6/uL (4.0-5.6); WHITE BLOOD CELLS 11.1 10/3/uL (4.5-10.5)
[2016-12-06 05:59] LABS: MANUAL DIFF NO %; PLATELET COUNT 51 10/3/uL (150-400)
[2016-12-06 06:03] LABS: ALKALINE PHOSPHATASE 95 U/L (45-117); CHLORIDE, SERUM 97 MMOL/L (96-112); CO2 (CARBON DIOXIDE) 21 MMOL/L (24-34); GLOBULIN 3.1 G/DL (2.5-4.1); POTASSIUM, SERUM 4.3 MMOL/L (3.5-5.3); SGOT(AST) 671 U/L (5-40); SGPT(ALT) 199 U/L (5-65); SODIUM, SERUM 133 MMOL/L (135-148); TOTAL PROTEIN 6.1 G/DL (6.0-8.5)
[2016-12-06 06:04] LABS: BUN (BLOOD UREA NITROGEN) 59 MG/DL (6-23); CREATININE 1.89 MG/DL (0.55-1.02); GFR AFRICAN AMERICAN 30 ML/MIN (>=60); GFR NON AFRICAN AMERICAN 26 ML/MIN (>=60); GLUCOSE, SERUM 119 MG/DL (60-99); PHOSPHORUS, SERUM 4.2 MG/DL (2.5-4.5)
[2016-12-06 06:34] LABS: ACANTHOCYTES FEW (3-10/OIF); ELLIPTOCYTES 1+ (3-10/OIF) (0-2/OIF); HYPOCHROMIA 1+ (3-10/OIF) (0-2/OIF); PLATELET ESTIMATE DEC (ADEQUATE); SCHISTOCYTES OCC (0-2/OIF); TEARDROP SHAPED RBCS FEW (3-10/OIF)
[2016-12-07 05:46] LABS: INTERNATIONAL NORMAL RATI 2.4 UNITS (-); PROTIME (NOT ORD) 25.7 SEC (12.0-14.5)
[2016-12-07 05:47] LABS: BASOPHILS 0.2 %; BASOPHILS ABSOLUTE 0.02 10/3/uL (0.0-0.16); EOSINOPHILS 0.4 %; EOSINOPHILS ABSOLUTE 0.04 10/3/uL (0.0-0.53); HEMATOCRIT 37.7 % (36.0-48.0); HEMOGLOBIN 11.9 g/dL (12.0-16.0); IMMATURE GRANULOCYTES 0.3 %; IMMATURE GRANULOCYTES ABSOLUTE 0.03 10/3/uL (0.0-0.11); LYMPHOCYTES 6.7 %; LYMPHOCYTES ABSOLUTE 0.77 10/3/uL (0.67-4.30); MANUAL DIFF NO %; MEAN CORPUS HGB CONC 31.6 g/dL (32.0-36.0); MEAN CORPUSCULAR HEMOGLOB 25.1 pg (26.0-34.0); MEAN CORPUSCULAR VOLUME 79.4 fL (80-100); MONOCYTES 4.2 %; MONOCYTES ABSOLUTE 0.48 10/3/uL (0.21-1.20); NEUTROPHILS 88.2 %; NEUTROPHILS ABSOLUTE 10.07 10/3/uL (2.02-8.40); NUCLEATED RED BLOOD CELLS 0.7 /100WBC (0-0); PLATELET COUNT 51 10/3/uL (150-400); RBC DISTRIBUTION WIDTH 28.5 % (12.0-16.0); RED CELL COUNT 4.75 10/6/uL (4.0-5.6); WHITE BLOOD CELLS 11.4 10/3/uL (4.5-10.5)
[2016-12-07 05:53] LABS: A/G RATIO 1.1 (0.7-1.9); ALBUMIN 3.2 G/DL (3.5-5.0); ALKALINE PHOSPHATASE 99 U/L (45-117); CHLORIDE, SERUM 98 MMOL/L (96-112); CO2 (CARBON DIOXIDE) 19 MMOL/L (24-34); CREATININE 1.84 MG/DL (0.55-1.02); GFR AFRICAN AMERICAN 31 ML/MIN (>=60); GFR NON AFRICAN AMERICAN 27 ML/MIN (>=60); GLOBULIN 2.8 G/DL (2.5-4.1); POTASSIUM, SERUM 4.8 MMOL/L (3.5-5.3); SGOT(AST) 414 U/L (5-40); SGPT(ALT) 196 U/L (5-65); SODIUM, SERUM 130 MMOL/L (135-148); TOTAL BILIRUBIN 2.9 MG/DL (0-1.2)
[2016-12-07 05:58] LABS: BUN (BLOOD UREA NITROGEN) 64 MG/DL (6-23); GLUCOSE, SERUM 179 MG/DL (60-99)
[2016-12-07 06:05] LABS: PLATELET ESTIMATE DEC (ADEQUATE)
[2016-12-07 06:07] LABS: ANISOCYTOSIS 4+ (>50/OIF) (0-5/OIF); HYPOCHROMIA 1+ (3-10/OIF) (0-2/OIF)
[2016-12-07 10:49] LABS: ALBUMIN 2.9 G/DL (3.5-5.0); BUN (BLOOD UREA NITROGEN) 67 MG/DL (6-23); CALCIUM, SERUM 8.7 MG/DL (8.5-10.4); CHLORIDE, SERUM 95 MMOL/L (96-112); CO2 (CARBON DIOXIDE) 22 MMOL/L (24-34); CREATININE 1.94 MG/DL (0.55-1.02); GFR AFRICAN AMERICAN 29 ML/MIN (>=60); GFR NON AFRICAN AMERICAN 25 ML/MIN (>=60); SODIUM, SERUM 128 MMOL/L (135-148)
[2016-12-07 10:50] LABS: GLUCOSE, SERUM 230 MG/DL (60-99); PHOSPHORUS, SERUM 3.1 MG/DL (2.5-4.5)
[2016-12-08 09:41] LABS: HEMATOCRIT 40.8 % (36.0-48.0); HEMOGLOBIN 12.8 g/dL (12.0-16.0); MEAN CORPUS HGB CONC 31.4 g/dL (32.0-36.0); MEAN CORPUSCULAR VOLUME 79.8 fL (80-100); NUCLEATED RED BLOOD CELLS 0.6 /100WBC (0-0); RBC DISTRIBUTION WIDTH 29.5 % (12.0-16.0); RED CELL COUNT 5.11 10/6/uL (4.0-5.6); WHITE BLOOD CELLS 10.1 10/3/uL (4.5-10.5)
[2016-12-08 09:42] LABS: MANUAL DIFF YES %; PLATELET COUNT 49 10/3/uL (150-400)
[2016-12-08 09:45] LABS: BUN (BLOOD UREA NITROGEN) 66 MG/DL (6-23); CALCIUM, SERUM 8.9 MG/DL (8.5-10.4); CHLORIDE, SERUM 99 MMOL/L (96-112); CO2 (CARBON DIOXIDE) 22 MMOL/L (24-34); CREATININE 1.79 MG/DL (0.55-1.02); GFR AFRICAN AMERICAN 32 ML/MIN (>=60); GFR NON AFRICAN AMERICAN 28 ML/MIN (>=60); GLUCOSE, SERUM 101 MG/DL (60-99); PHOSPHORUS, SERUM 3.3 MG/DL (2.5-4.5); POTASSIUM, SERUM 4.4 MMOL/L (3.5-5.3); SODIUM, SERUM 134 MMOL/L (135-148)
[2016-12-08 09:57] LABS: ANISOCYTOSIS 4+ (>50/OIF) (0-5/OIF); PLATELET ESTIMATE DEC (ADEQUATE)
[2016-12-08 09:58] LABS: BURR CELLS 1+ (3-10/OIF) (0-2/OIF)
[2016-12-08 10:01] LABS: ACANTHOCYTES OCC (0-2/OIF); SCHISTOCYTES FEW (3-10/OIF)
[2016-12-08 10:02] LABS: POLYCHROMASIA 1+ (2-5/OIF) (0-1/OIF)
== END 2016-12-08 21:19 | disposition hospice, inpatient (51) | DRG 314 ==
LOC: ER 22:20 → 5NO 12-05 03:31
PROVIDERS: Emergency Medicine; Hospitalist; Internal Medicine; Internal Medicine Cardiovascular Disease; Registered Nurse
DX: I27.81 Cor pulmonale (chronic) (principal); A41.50 Gram-negative sepsis, unspecified; E11.65 Type 2 diabetes mellitus with hyperglycemia; D69.6 Thrombocytopenia, unspecified; T80.29XA Infection following other infusion, transfusion and therapeutic injection, initial encounter; N18.3 Chronic kidney disease, stage 3 (moderate); I80.8 Phlebitis and thrombophlebitis of other sites; R65.20 Severe sepsis without septic shock; Z68.41 Body mass index [BMI] 40.0-44.9, adult; I27.2 Other secondary pulmonary hypertension; E66.01 Morbid (severe) obesity due to excess calories; G47.33 Obstructive sleep apnea (adult) (pediatric); I25.10 Atherosclerotic heart disease of native coronary artery without angina pectoris; Z95.1 Presence of aortocoronary bypass graft; Z95.2 Presence of prosthetic heart valve; E78.00 Pure hypercholesterolemia, unspecified; Z51.5 Encounter for palliative care
CPT/HCPCS: 36600; 70450; 71010; 71020; 80048; 80053; 80069; 81003; 82009; 82140; 82570; 82805; 82962; 83605; 83735; 83880; 84100; 84145; 84156; 84443; 84484; 85025; 85610; 85730; 87040; 87077; 87150; 87186; 93005; 93971; 96374; 99285; A9270-GY; J1170; J3370; P9047

== ENCOUNTER 2016-12-08 21:47 | Inpatient (IN) | payer OTHER ==
--- NOTE | ~2016-12-08 | HP ---
History And Physical [facility] [address] [place]. [address] NAME: ANDREW GARCIA : 45 STATUS : ADM IN [facility]#: [id number] AGE: 71 ADM/REG DATE : 12/08/16 MR#: [id number] REPORT SERV DATE: 12/09/16 DICTATED BY: CHOLO RG DATE: 12/09/16 REPORT STATUS : Draft TRANSCRIBED BY: MODL DATE: 12/09/16 DATE OF ADMISSION: 12/08/2016 HISTORY OF PRESENT ILLNESS: This is a 71-year-old white female, admitted to [facility] with a diagnosis of heart failure, end stage, secondary to pulmonary hypertension, cor pulmonale, complicated by uncontrolled pain and severe dyspnea. The patient is now admitted to the [facility] service. The family is present in the room, and they are supportive. No acute concerns since admission. 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 The patient is noted to recently be readmitted to [facility] for CHF fluid overload, unresponsive to outpatient treatment. PAST MEDICAL HISTORY: Significant for pulmonary hypertension, cor pulmonale, type 2 diabetes, hypertension, and obstructive sleep apnea. The patient was seeing Dr. Espinoza as her current holter technician and Dr. Montanez, her PCP. CURRENT MEDICATIONS: All reviewed, but have been all discontinued due to her DNR or hospice status. ALLERGIES: NOTED FOR MORPHINE. SOCIAL HISTORY: The patient has a history of former smoking, but no alcohol. REVIEW OF SYSTEMS: History was all obtained from the family present in the room. Pertinent positives include the patient has been unresponsive with decreased p.o. intake, minimal urine output, edematous extremities, and increasing shortness of breath. PHYSICAL EXAMINATION: VITAL SIGNS: There are no current vitals due to the patient being DNR or hospice status. GENERAL: The patient is unresponsive and sedated. HEENT: Eyes close, mouth open with some rough breath sounds. NECK: No evidence of any edema to her neck or elevated pressures. HEART: Rate is regular rhythm with murmur present and radiates to all four quadrants. LUNGS: Clear anteriorly. Did not hear any crackles or pulmonary edema at this time. ABDOMEN: Has minimal bowel sounds, but firm and no evidence of any masses. SKIN: Very tight due to the 3 to 4+ edema in all extremities with some bruising noted due to previous IVs, but no evidence of any open wounds or any draining. EXTREMITIES: The patient is not moving any extremities and does not react to painful stimuli. Minimal responsiveness at all. IV is in place with a right PICC line to the right upper extremity. Villagomez also in place. LABORATORY DATA: Currently, there are no new labs to review due to her DNR status. ASSESSMENT AND PLAN: GIP patient, admitted for uncontrolled pain and shortness of breath. The patient is currently a DNR. We will begin Dilaudid CREPING MACHINE OPERATOR HELPER pump to help with pain control, Ativan and other comfort measures. Continue support for family. Anticipate peaceful History And Physical [address] [place]. [address] NAME: ANDREW GARCIA : 45 STATUS : ADM IN [facility]#: [id number] AGE: 71 ADM/REG DATE : 12/08/16 MR#: [id number] REPORT SERV DATE: 12/09/16 DICTATED BY: CHOLO RG DATE: 12/09/16 REPORT STATUS : Draft TRANSCRIBED BY: KYRA DATE: 12/09/16 transition for this patient. ZACH/KYRA Cholo Rg M.D. / [id number] CC: Cholo Rg M.D.
[~2016-12-08 21:47] MED LIST changes: +ANUSOL-HC25 MG PR; +BISR PR; +BIST PO; +DSS PO; +GENERLAC PO; +KAOPECTATE262 MG/15 PO; +L40 PO; +LEVEMFLXPN SC; +MAALOX PO; +MELA3 PO; +METPAKSF PO; +MIRALAX POWDER1 PKT PO; +MOMUD PO; +NOVOPEN SC; +PHENADOZ12.5 MG PR; +PROMEGA PO; +ROBITUSS23 PO; +T PO; +VANCOCIN HCL125 MG PO; +ZOFRAN4 PO; +[UNRECOGNIZED DRUG - CODE] SC
== END 2016-12-10 02:38 | disposition expired | DRG 315 ==
LOC: 5NO 21:47
DX: I27.81 Cor pulmonale (chronic) (principal); Z68.41 Body mass index [BMI] 40.0-44.9, adult; E11.65 Type 2 diabetes mellitus with hyperglycemia; N18.3 Chronic kidney disease, stage 3 (moderate); I27.2 Other secondary pulmonary hypertension; G47.33 Obstructive sleep apnea (adult) (pediatric); Z51.5 Encounter for palliative care; Z66 Do not resuscitate; I25.10 Atherosclerotic heart disease of native coronary artery without angina pectoris; Z95.1 Presence of aortocoronary bypass graft; E66.01 Morbid (severe) obesity due to excess calories
CPT/HCPCS: A9270-GY